=== PATIENT | female | born 1985 | race Caucasian/White ===

== ENCOUNTER 2017-12-24 13:15 | Emergency (ER) | payer SELFPAY ==
[2017-12-24 13:16] VITALS: BP 115/53; PULSE 101; RESP 16; TEMP 37; O2SAT 99; BMI 21.0
[2017-12-24 14:29] LABS: Mucous, Urine 0 SEEN /hpf (<or=2+); Red Blood Cells-Urine 0 SEEN /hpf (0-5); White Blood Cells 0 SEEN /hpf (0-5)
[2017-12-24 14:33] LABS: Color, Urine Yellow (Yellow); Glucose, Dipstick Normal (Normal); Ketone-Dipstick Negative (Negative); Leukocyte Esterase-Dipstick Negative /ul (Negative); Nitrite-Dipstick Negative (Negative); Occult Blood-Urine Negative /ul (Negative); Protein-Dipstick Negative (Negative); Specific Gravity, Urine 1.015 (1.002-1.030); Urine Bilirubin Dipstick Negative (Negative); Urine Clarity Sl. Cloudy (Clear); Urine Urobilinogen Normal (Normal)
[2017-12-24 14:35] LABS: Absolute Neutrophil Count 7.6 X10^3/uL (2.0-7.7); Basophil# 0.02 X10^3/uL; Basophil% 0.2 % (0-1); Eosinophil# 0.07 X10^3/uL; Eosinophils% 0.7 % (0-5); Hematocrit 31.9 % (37-47); Hemoglobin 10.5 g/dl (12.0-15.0); Lymphocyte % 15.6 % (19-41); Mean Corp Hgb Conc 32.9 g/gl (32-36); Mean Corpuscular Hgb 28.6 pg (27.0-32.0); Mean Corpuscular Volume 86.9 fL (81-99); Mean Platelet Vol. 10.1 fl (6.2-12.0); Monocyte# 0.43 X10^3/uL; Monocyte% 4.5 % (0-10); Neutrophil # 7.58 X10^3/uL (2.7-7.7); Neutrophil % 78.9 % (47-70); Platelet Count 217 K/mm3 (150-450); RBC Distribution Width CV 13.2 % (11.6-14.6); RBC Distribution Width SD 40.6 fl (35.1-43.9); Red Blood Count 3.67 M/mm3 (4.2-5.4); White Blood Count 9.6 K/mm3 (4.4-11.0)
[2017-12-24 14:36] LABS: POSITIVE COUNT NO; POSITIVE DIFFERENTIAL NO; POSITIVE MORPHOLOGY NO
[2017-12-24 14:39] LABS: Bacteria 1+ /hpf (None Seen); Squamous Epithelial Cells - UA 0-5 SEEN /hpf (5-10)
[2017-12-24 15:04] LABS: hCG Titer Quant., Serum 16919 mIU/mL (<9 non-preg)
--- NOTE | 2017-12-24 15:14 | US_ITS ---
STUDY: SECOND AND THIRD TRIMESTER OBSTETRICAL ULTRASOUND - LIMITED REASON FOR EXAM: Female, 32 years old. Left pelvic pain. Beta hCG of 16,919. LMP: July 2017. PRIOR ULTRASOUND: None. TECHNIQUE: Transabdominal ultrasound evaluation was performed. FINDINGS: There is a single intrauterine fetus. The fetus is in a cephalic presentation. There is demonstrated cardiac activity with a heart rate of 163 bpm. There is a normal amniotic fluid volume. The placenta is left lateral in location and is not low lying. There are Grade 1 placental changes. The cervix measures 3.81 cm cm in length. BIOMETRY: BPD: 4.62 cm: 20 weeks, 0 days HC: 16.65 cm: 19 weeks, 3 days AC: 14.12 cm: 19 weeks, 4 days FL: 3.12 cm: 19 weeks, 5 days age by current US: 19 weeks, 5 days. CRIS by current US: May 15, 2018. Estimated weight: 300 grams, +/- 44 grams. US/OB Limited With Biometrics IMPRESSION: 1. Live single intrauterine at 19 weeks, 5 days. CRIS is May 15, 2018. 2. EFW of 300 g. 3. Adequate amniotic fluid. 4. Left lateral grade 1 placenta. 5. Vertex presentation. Electronically Signed: Shay Mayer DO at 16:19 EDT Tel [phone], Service support ,
--- NOTE | 2017-12-24 15:58 | ED.DCSUM_ITS ---
- ER Visit Summary Date of Service: 12/24/17 Chief Complaint: [Abdominal pain] History of Present Illness: The patient is a 32 F [presents the emergency department complaint of abdominal pain ?3 days. Patient describes the pain is left lower quadrant/pelvis. Patient states that she took home test a couple weeks ago and it was positive. She denies any vaginal bleeding. Patient has history of prior tubal and is concerned. Patient denies any significant urinary symptoms other than some mild frequency. Patient has had some mild nausea. Patient has had some mild discomfort in her back.] Physical Examination: [HEENT-PERRLA, EOMI. Cranial nerves II through XII grossly intact. TMs clear. Mucous membranes moist. No adenopathy. Cardiovascular-regular rate and rhythm without murmur or ectopy Lungs-clear to auscultation, chest wall stable without crepitus or subcu emphysema Abdomen-normoactive bowel sounds, soft. Patient does have some tenderness over left lower quadrant down into the pelvis. No masses palpated. There is no rebound, rigidity, or perineal signs. Extremities-intact ?4, normal range of motion, normal pulses, atraumatic] Test Results: [CBC with differential was normal. Urinalysis was normal. Quant was 16,919. Pelvic ultrasound ordered and pending] Emergency Department Course and Treatment: [Care of patient turned over to evening physician awaiting ultrasound results] Treatment Plan: [Pending ultrasound results] Disposition: [Pending ultrasound results] Impression: [Abdominal/pelvic pain] This note was generated with [employer] dictation software. It may contain incorrect words, spelling, and punctuation that were not noted in review of the chart prior to signing ED Disposition - Plan for ED Patient: Chief Complaint: Abd Pain Referrals: Jes Wood MD [Primary Care Provider] -
[2017-12-24 16:28] VITALS: RESP 18
--- NOTE | 2017-12-24 17:06 | ED.DEP ---
ED Disposition - Plan for ED Patient: Chief Complaint: Abd Pain Instructions: Care for a Healthy Baby Referrals: Jes Wood MD [Primary Care Provider] - Kamini Burkett MD [STAFF PHYSICIAN] -
[2017-12-24 17:11] VITALS: BP 104/60; PULSE 88; RESP 18; O2SAT 100
== END 2017-12-24 17:12 | disposition home or self-care (01) ==
PROVIDERS: Emergency Medicine; Emergency Provider Emergency Medicine; Family Provider Family Medicine; PCP Family Medicine
DX: O26.892 Other specified pregnancy related conditions, second trimester (principal); R10.2 Pelvic and perineal pain; Z3A.19 19 weeks gestation of pregnancy
CPT/HCPCS: 76816; 81001; 84702; 85025; 86900; 99283; A4216

== ENCOUNTER 2018-05-08 11:35 | Inpatient (IN) | payer MEDICAID, SELFPAY ==
[2018-05-08 11:47] VITALS: BMI 25.4
[2018-05-08] MEDS: Lactated Ringers 1,000 ML 50 ML IV (12:00)
--- NOTE | 2018-05-08 12:07 | PCM.HP.OB ---
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 Patient reports initiation of strong contractions today that quickly became regular and more painful. On admission patient was found to be 6cm with BBOW by nursing staff - SROM for clear fluid on exam @ 1140am. Patient denies vaginal bleeding or decreased movement. Patient care initiated at 21 weeks x 8 visits. 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 Maternal titers have remained low during and have not increased. Allergies Penicillins Allergy (Verified 12/24/17 13:19) Rash Home Medications: Home Medications Multivitamin [Multiple Vitamins] 1 each PO DAILY 08/11/16 Smoking Status: Former smoker Alcohol: None Number of Fetus(es): 1 Heart Tracing: Baseline 145, moderate variability, + accels, no decels noted TOCO Analysis: Ctx q 2-3 minutes, palpate moderate to strong History Past Pregnancies: Past Pregnancies Delivery Date Name GA/Weeks Outcome Route Weight Gender Labor Length Anesthesia Delivery Location Provider FOB 11/2006 [facility] 38 Live 7#6oz M Epidural 12/2016 40+2 Live 8#4oz F Epidural 08/2014 Ectopic Labs: AB+, Abs Screen - + anti-c and anti-cW (titers stable at 4 and 2 respectively), Urine Tox Negative, Urine Culture Negative, GC Neg, CT Positive --> ANGY is Neg , HIV Neg, HepBsAg Neg, Rubella Immune, RPR Neg, 1 hour GCT = 103, Hgb = 10.4 --> 9.2, GBS neg Expected Delivery Method: Spontaneous Vaginal Describe any other labor & delivery plans:: Desires epidural Number of Visits: 8 Review of Systems Constitutional: Denies: Chills, Fever Eyes: Denies: Vision Change HEENT: Denies: Head Aches Cardiovascular: Denies: Edema Gastrointestinal: Reports: Abdominal Pain - Reports ctx q 2-3 minutes Genitourinary: Denies: Dysuria, Frequency, Urgency Gynecological: Reports: Vaginal discharge Psychiatric: Denies: Anxiety, Depression, Homicidal Ideations, Suicidal Ideations Hematologic/ Lymphatic: Reports: Anemia Physical Exam Vitals: See nursing assessment for vitals - patient afebrile and normotensive General: Alert, Oriented x3, No apparent distress HEENT: Atraumatic, Normocephalic. Negative for: Thyromegaly, Lymphadenopathy Cardiovascular: Regular rate, Regular Rhythm Lungs: Normal air movement Abdomen: Soft, Non Tender, Non-Distended, Gravid Neurological: Deep Tendon Reflexes 2+/4 and Symmetrical, Neuro grossly intact FULL STACK SOFTWARE DEVELOPER: Normal external genitalia. 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 1) Admit patient, Dr. Kwadwo CHO OB back-up aware of admission 2) T+C for 2 units PRBCs based on patient's hx of maternal anti-c and anti-cW antibodies 3) Expectant management at this time - epidural requested if time allows 4) Anticipate Juanis ARTHUR
[2018-05-08 12:23] LABS: Hemoglobin 10.7 g/dl (12.0-15.0); Mean Corp Hgb Conc 32.4 g/gl (32-36); Mean Corpuscular Hgb 28.8 pg (27.0-32.0); Mean Corpuscular Volume 88.9 fL (81-99); Mean Platelet Vol. 9.3 fl (6.2-12.0); Platelet Count 178 K/mm3 (150-450); RBC Distribution Width CV 15.4 % (11.6-14.6); RBC Distribution Width SD 49.4 fl (35.1-43.9); Red Blood Count 3.71 M/mm3 (4.2-5.4); White Blood Count 11.8 K/mm3 (4.4-11.0)
[2018-05-08 12:24] LABS: Scan Indicated on CBC? Y/N NO
[2018-05-08] MEDS: Oxytocin 30 units/NS 500 ml 30 UNITS/500 ML IV.SOLN 334 UNITS IV (13:26)
--- NOTE | 2018-05-08 13:49 | PCM.OB.VAG ---
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 Qualifiers: Fetus number: single or unspecified fetus Qualified Code(s): O36.1930 - Maternal care for other isoimmunization, third trimester, not applicable or unspecified Vaginal Delivery Maternal Presentation: Active Labor Amniotic Membrane Rupture Type: Spontaneous Rupture of Membrane time: 11:40am Amniotic Fluid Description: Clear Final CRIS: 05/15/18 Gestational age: 39 Weeks and 0 Days Date of Procedure: 05/08/18 Pre-Operative Diagnosis: Active Labor @ 39 weeks Post-Operative Diagnosis: of viable girl baby Surgery/ Procedure Performed: Spontaneous Vaginal Delivery Type of Anesthesia: None Description of Procedure: Patient progressed quickly to 9cm, unable to receive epidural as labor progressed so fast. Patient soon started to feel increased pelvic and rectal pressure and was found to be 9.5/100/0 with retractable cervical lip during contractions. Patient pushed well with encouragement and delivered viable girl baby over intact perineum at 1321. Infant head delivered OA, restituted to CAROL and then LOT. Shoulders delivered without difficulty followed by body. had spontaneous cry and respirations, was dried and stimulated and was placed on maternal chest for [id number]. Infant mouth and nose bulb suctioned. Apgars 8 and 9. Umbilical cord clamped and cut once it stopped pulsing by patient's sister. Placenta then delivered spontaneously via Unger mechanism intact with 3VC. Of note, placenta was a bilobed placenta with velamentous cord insertion. FF, midline to massage and 3FB below umbilicus. IV pitocin infused per protocol for active management of the 3rd stage. Upon inspection of vaginal vault, no lacerations noted. No repair needed. Vaginal sweep negative. Sponge count correct. Patient electing to feed baby formula, skin-to skin contact continued at this time. Patient desires PPTL for contraception. Juanis Lalo LINE UP MACHINE OPERATOR-CNM Presentation: Vertex, CAROL Placental Delivery Description: Spontaneous Placenta Disposition: [facility] Cord Vessel Description: 3 Vessels Cord Entanglement: None Estimated Blood Loss: 150 A gender: Female (1 minute): 8 (5 minute): 9 Episiotomy Description: None Laceration: None Medications given after delivery: IV Pitocin Complications: None
[2018-05-08] MEDS: Oxytocin 30 units/NS 500 ml 30 UNITS/500 ML IV.SOLN 167 UNITS IV (13:56)
--- NOTE | 2018-05-08 13:56 | OP.PCM_ITS ---
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 Qualifiers: Fetus number: single or unspecified fetus Qualified Code(s): O36.1930 - Maternal care for other isoimmunization, third trimester, not applicable or unspecified Vaginal Delivery Maternal Presentation: Active Labor Amniotic Membrane Rupture Type: Spontaneous Rupture of Membrane time: 11:40am Amniotic Fluid Description: Clear Final CRIS: 05/15/18 Gestational age: 39 Weeks and 0 Days Date of Procedure: 05/08/18 Pre-Operative Diagnosis: Active Labor @ 39 weeks Post-Operative Diagnosis: of viable girl baby Surgery/ Procedure Performed: Spontaneous Vaginal Delivery Type of Anesthesia: None Description of Procedure: Patient progressed quickly to 9cm, unable to receive epidural as labor progressed so fast. Patient soon started to feel increased pelvic and rectal pressure and was found to be 9.5/100/0 with retractable cervical lip during contractions. Patient pushed well with encouragement and delivered viable girl baby over intact perineum at 1321. Infant head delivered OA, restituted to CAROL and then LOT. Shoulders delivered without difficulty followed by body. had spontaneous cry and respirations, was dried and stimulated and was placed on maternal chest for [id number]. Infant mouth and nose bulb suctioned. Apgars 8 and 9. Umbilical cord clamped and cut once it stopped pulsing by patient's sister. Placenta then delivered spontaneously via Unger mechanism intact with 3VC. Of note, placenta was a bilobed placenta with velamentous cord insertion. FF, midline to massage and 3FB below umbilicus. IV pitocin infused per protocol for active management of the 3rd stage. Upon inspection of vaginal vault, no lacerations noted. No repair needed. Vaginal sweep negative. Sponge count correct. Patient electing to feed baby formula, skin-to skin contact continued at this time. Patient desires PPTL for contraception. Juanis Lalo BEATER HEAD-CNM Presentation: Vertex, CAROL Placental Delivery Description: Spontaneous Placenta Disposition: [facility] Cord Vessel Description: 3 Vessels Cord Entanglement: None Estimated Blood Loss: 150 A gender: Female (1 minute): 8 (5 minute): 9 Episiotomy Description: None Laceration: None Medications given after delivery: IV Pitocin Complications: None
--- NOTE | 2018-05-08 14:00 | DCINST_ITS ---
Discharge Diet: No Restrictions Discharge Activity: Return to Normal Activity, May not drive while taking narcotic pain medications., May Shower May resume sexual activity in: 4-6 weeks Additional Activity Instructions:: Nothing in the vagina for 4-6 weeks. You may return to work/school in 6 weeks. Call your doctor if your incision/area has: Continuous Slow Oozing, Sudden Increased Bleeding, Increased Pain/ Swelling, Increased Redness, Foul Smelling Discharge Call your doctor if you observe: Fever of 101 or Higher, Inability to urinate, Inability to have a bowel movement, Using more than one pad per hour Additional Instructions: If you experience any of the following, contact your healthcare provider. * Bleeding that soaks a pad every hour for 2 hours * Fever 100.4 or higher * Unrelieved incision or abdominal pain * Swelling, redness, discharge or bleeding from your incision or episiotomy site * Your incision begins to separate * Problems urinating (including inability to urinate or burning while urinating). * Visual changes * Severe headache * Flu-like symptoms * Pain or redness in one of both of your breasts * Pain, warmth, tenderness or swelling in your legs, especially the calf area * Frequent nausea and vomiting * Symptoms of depression or anxiety If you experience any of the following, call 911 or go to the nearest Emergency Room. * Chest pain * Problems breathing * Seizure activity * Partial or complete paralysis of a body part, slurred speech, weakness or drooping of the face, or a sudden inability to walk or hold your balance Allergies/Adverse Reactions: Allergies Penicillins Allergy (Verified 12/24/17 13:19) Rash Medications to take at Discharge Multivitamin [Multiple Vitamins] 1 each PO DAILY 08/11/16 Ibuprofen [Motrin] 600 mg PO Q6H PRN PRN tablet 05/08/18 Senna/Docusate Sodium [Senokot-S] 1 - 2 tablet PO DAILY PRN PRN tablet 05/08/18 Please Follow Up With: Juanis May CNM When: Call to make an appointment with your provider in 2 weeks and 6 weeks. [facility] will contact your regarding scheduling PPTL surgery Primary Care Physician: Jes Wood MD [Primary Care Provider] - Test Results: Test results from this visit will be discussed in further detail at your follow- up appointment, if applicable.
[2018-05-08] MEDS: Ibuprofen 600 MG Tablet PO ×2 (14:55→23:02)
--- NOTE | 2018-05-08 16:28 | NURSING ---
Report given to Amie Hernández RN. She will assume care of patient at this time.
[2018-05-08 20:10] VITALS: BP 116/62; PULSE 80; RESP 18; TEMP 36.7; O2SAT 98
[2018-05-08 23:03] VITALS: BP 125/65; PULSE 81; RESP 18; TEMP 36.9
[2018-05-09 04:05] VITALS: BP 112/66; PULSE 70; RESP 18; TEMP 36.3
[2018-05-09 06:37] LABS: Hematocrit 32.8 % (37-47); Hemoglobin 10.4 g/dl (12.0-15.0); Mean Corp Hgb Conc 31.7 g/gl (32-36); Mean Corpuscular Hgb 28.4 pg (27.0-32.0); Mean Corpuscular Volume 89.6 fL (81-99); Mean Platelet Vol. 9.7 fl (6.2-12.0); Platelet Count 153 K/mm3 (150-450); RBC Distribution Width CV 15.5 % (11.6-14.6); RBC Distribution Width SD 49.6 fl (35.1-43.9); Red Blood Count 3.66 M/mm3 (4.2-5.4); White Blood Count 8.4 K/mm3 (4.4-11.0)
[2018-05-09] MEDS: Ibuprofen 600 MG Tablet PO ×3 (06:37→20:37)
[2018-05-09 06:38] LABS: Scan Indicated on CBC? Y/N NO
[2018-05-09 08:00] VITALS: BP 108/60; PULSE 70; RESP 14; TEMP 36.3; O2SAT 98
--- NOTE | 2018-05-09 08:25 | PCM.PN.OB ---
Subjective: Patient feels well - Physical Exam General: Alert, Oriented x3 Abdomen: Soft, Non Tender, Non-Distended - ff mid & below umb Extremities: No Calf Tenderness Vital Signs Temp Pulse Resp BP Pulse Ox 97.3 F L 70 18 112/66 98 05/09/18 04:05 05/09/18 04:05 05/09/18 04:05 05/09/18 04:05 05/08/18 20:10 Oxygen Delivery Method Room Air Weight: 153 lb Body Mass Index (BMI) 25.4 Intake and Output for Last 24 Hours 05/07/18 05/08/18 05/09/18 23:59 23:59 23:59 Intake Total 454 / 454 Output Total 200 / 200 Balance 254 / 254 Laboratory Tests Past 24 Hrs 05/08/18 05/08/18 05/08/18 11:45 11:45 11:45 WBC 11.8 H RBC 3.71 L Hgb 10.7 L Hct 33.0 L MCV 88.9 MCH 28.8 MCHC 32.4 RDW 15.4 H RDW Differential 49.4 H Plt Count 178 MPV 9.3 Blood Type Not Reportable AB POSITIVE Antibody Screen POSITIVE H Antibody Identification ANTI-LITTLE c Crossmatch 05/08/18 05/09/18 12:10 06:27 WBC 8.4 RBC 3.66 L Hgb 10.4 L Hct 32.8 L MCV 89.6 MCH 28.4 MCHC 31.7 L RDW 15.5 H RDW Differential 49.6 H Plt Count 153 MPV 9.7 Blood Type Antibody Screen Antibody Identification Crossmatch See Detail Medical Necessity - Tobacco Use Smoking Status: Former smoker Assessment/Plan All Active Problems (Last Updated 05/08/18 @ 13:58 by Juanis May CNM) History of drug use (Acute) Tobacco use complicating (Acute) Rubella non-immune status, antepartum (Acute) Supervision of high-risk (Acute) PPD#1 Routine care Possible d/c home later today per patient request
[2018-05-09 12:10] VITALS: BP 113/40; PULSE 72; RESP 20; TEMP 36.6; O2SAT 99
[2018-05-09] MEDS: Senna/Docusate Sodium 1 Tablet PO (12:34)
[2018-05-09 18:10] VITALS: BP 104/60; PULSE 73; RESP 14; TEMP 36.4; O2SAT 99
[2018-05-09 20:00] VITALS: BP 128/50; PULSE 64; RESP 16; TEMP 36.4; O2SAT 99
[2018-05-10 02:05] VITALS: BP 98/62; PULSE 62; RESP 16; TEMP 36.2; O2SAT 100
--- NOTE | 2018-05-10 07:54 | PCM.PN.OB ---
Subjective: Patient sitting up in bed, baby at bedside underneath bili lights. Patient denies any issues at this time, reports desire to be discharged today. Denies issues with ambulation or urination. Denies PAYNE, scotoma or dizziness. Objective: Nipples without cracks or blisters, no erythema noted Abdomen NT x 4 quadrants, FF midline 4FB below umbilicus +2/4 reflexes in LE, no edema scant rubra lochia - Physical Exam General: Alert, Oriented x3, Cooperative HEENT: Atraumatic, Normocephalic Neck: Supple Lungs: Normal air movement Cardiovascular: Regular rate, Regular Rhythm Abdomen: Soft, Non Tender Extremities: No edema, Capillary Refill Less than 3 Seconds Skin: No rashes, No breakdown Musculoskeletal: No Tenderness to Palpation of Joints or Extremities Neurological: Cranial nerves II-XII grossly intact Psych/Mental Status: Normal Affect, Appropriate Vital Signs Temp Pulse Resp BP Pulse Ox 97.1 F L 62 16 98/62 100 05/10/18 02:05 05/10/18 02:05 05/10/18 02:05 05/10/18 02:05 05/10/18 02:05 Oxygen Delivery Method Room Air Weight: 153 lb Body Mass Index (BMI) 25.4 Intake and Output for Last 24 Hours 05/08/18 05/09/18 05/10/18 23:59 23:59 23:59 Intake Total 454 / 454 Output Total 200 / 200 Balance 254 / 254 Medical Necessity - Tobacco Use Smoking Status: Former smoker Assessment/Plan All Active Problems (Last Updated 05/08/18 @ 13:58 by Juanis May CNM) History of drug use (Acute) Tobacco use complicating (Acute) Rubella non-immune status, antepartum (Acute) Supervision of high-risk (Acute) A: 33 y/o now, s/p , PPD #2, Normal P: 1) Discharge to home pending discharge 2) RTC at 2 weeks and 6 week PP to [facility] Juanis May APRN-SARI
[2018-05-10 08:26] VITALS: BP 135/75; PULSE 79; RESP 16; TEMP 36.1; O2SAT 98
[2018-05-10] MEDS: Ibuprofen 600 MG Tablet PO (09:23)
[2018-05-10 13:35] VITALS: BP 100/52; PULSE 62; RESP 16; TEMP 36.3; O2SAT 100
--- NOTE | 2018-05-15 14:46 | NURSING ---
05/15/18 Follow up phone call, Mom doing well and baby too. Milk is in. Discharge went well, baby had to stay a couple days longer due to bilirubin etc. but doing well now. No complaints but states that all went well for her stay. Dafne RN IBCLC
--- OUTSIDE RECORDS SUMMARY | 2018-06-24 15:16 | XMS RPT_ITS ---
:1985 Author Organization OHIP Care Team Providers Name Role Phone EMILY MONTERO Attending Unavailable JANETT, JUANIS (CNM) Referring Unavailable JANETT, JUANIS (CNM) Attending Unavailable MORENO, LAYTON (CNM) Attending Unavailable MORENO, LAYTON (CNM) Referring Unavailable JANETT, JUANIS (CNM) Referring Unavailable JANETT, JUANIS (CNM) Referring Unavailable MIREYA MCNAMARA Attending Unavailable MORENO, LAYTON (CNM) Referring Unavailable MORENO, LAYTON (CNM) Attending Unavailable MORENO, LAYTON (CNM) Referring Unavailable MORENO, LAYTON (CNM) Referring Unavailable MORENO, LAYTON (CNM) Referring Unavailable JANETT, JUANIS (CNM) Attending Unavailable MORENO, LAYTON (CNM) Referring Unavailable MASCI, KAT A Referring Unavailable MASCI, KAT A Referring Unavailable JANETT, JUANIS (CNM) Attending Unavailable NEHEMIAS, KAT A Referring Unavailable SUPRIYA FOURNIER Referring Unavailable MASCI, KAT A Referring Unavailable JANETT, JUANIS (CNM) Attending Unavailable YURIY MARINELLI (PAPER COLORER) Attending Unavailable YURIY MARINELLI (PAPER COLORER) Referring Unavailable Supriya Fournier Admitting Unavailable Supriya Fournier Attending Unavailable Supriya Fournier Referring Unavailable Jes Wood Primary Care Unavailable Jes Wood Primary Care Unavailable Sabrina Best Attending Unavailable PROBLEMS PROBLEMS DATE TYPE CONDITION / CODE ATTENDING STATUS SOURCE 03/21/2018 Active Other iron RUTYURIY HENAO Active [facility] deficiency anemias (PAPER COLORER) [place] / D50.8(ICD-10) Repository 03/21/2018 Active Intestinal RUTTI, YURIY Active [facility] malabsorption, (PAPER COLORER) [place] unspecified / Repository K90.9(ICD-10) 05/30/2018 Active Periapical abscess RUTTIYURIY Active [facility] without sinus / (PAPER COLORER) [place] K04.7(ICD-10) Repository 05/30/2018 Active Localized swelling, RUTTI, YURIY Active [facility] mass and lump, head (PAPER COLORER) [place] / R22.0(ICD-10) Repository 05/02/2018 Active Unknown / JUANIS ROWLAND [facility] UNK(Unknown) (CN) [place] Repository 04/02/2018 Active Supervision of [facility] other high risk [place] pregnancies, third Repository trimester / O09.893(ICD-10) 03/04/2018 Active 29 weeks gestation [facility] of / [place] Z3A.29(ICD-10) Repository 03/04/2018 Active Other specified [facility] abnormal [place] immunological Repository findings in serum / R76.8(ICD-10) 02/18/2018 Active Maternal care for [facility] other [place] isoimmunization, Repository second trimester, not applicable or unspecified / O36.1920(ICD-10) 02/05/2018 Active Encounter for [facility] supervision of [place] other normal Repository , second trimester / Z34.82(ICD-10) 02/05/2018 Active 25 weeks gestation [facility] of / [place] Z3A.25(ICD-10) Repository PROCEDURES PROCEDURES No Procedure Records FoundRESULTS RESULTS CBC AND DIFFERENTIAL Collected: 05/30/2018 Status: F Source: [place] 3:47 PM [facility] REPOSITORY TYPE CODE TESTS RESULT OUT OF REFERENCE UNITS RANGE LAB WBC 3.70-11.00 k/uL WBC 6.96 LAB RBC 3.90-5.20 m/uL RBC 4.88 LAB HGB 11.5-15.5 g/dL Hemoglobin 13.7 LAB HCT 36.0-46.0 % Hematocrit 44.6 LAB MCV 80.0-100.0 fL MCV 91.4 LAB MCH 26.0-34.0 pG MCH 28.1 LAB MCHC 30.5-36.0 g/dL MCHC 30.7 LAB RDWCV 11.5-15.0 % RDW-CV 13.7 LAB PLTCT 150-400 k/uL Platelet Count 243 LAB MPV 9.0-12.7 fL MPV 10.3 LAB ANEUT % Neut% 61.3 LAB AANEUT 1.45-7.50 k/uL Abs Neut 4.25 LAB ALYMP % Lymph% 31.0 LAB AALYMP 1.00-4.00 k/uL Abs Lymph 2.16 LAB AMONO % Stearns% 5.5 LAB AAMONO <0.87 k/uL Abs Stearns 0.38 LAB AEOS % Eosin% 1.6 LAB AAEOS <0.46 k/uL Abs Eosin 0.11 LAB ABASO % Baso% 0.6 LAB AABASO <0.11 k/uL Abs Baso 0.04 LAB AUNRBC 0 /100 WBC NRBCs High 0.1 LAB ABNRBC <0.01 k/uL Absolute High nRBC 0.01 LAB DTYP DTYPE Auto Diff Performed By: #### CBCDIF #### [facility] [address] [place], [place] [address] CNOV Observed: 05/30/2018 Status: COMPLETED Source: [place] 3:20 PM [facility] REPOSITORY Office Visit (FAMPWS) MITCHELL LACEY ([id number]) 1985 F Date Time Provider Department 05/30/18 3:20 PM YURIY MARINELLI ([facility]) FAMPWS During your visit today, we recorded the following information about you: Pulse Respiration Blood pressure Weight 94/minute 16/minute 116/70 61.7 kg Yuriy Marinelli APRN.PAPER COLORER 05/30/2018 4:59 PM Signed 05/30/2018 Patient presents with: Edema: face left side SUBJECTIVE: This is a 33 year old that is here today for left sided face swelling that she noticed yesterday when she woke up. Denies injury, using new products, ever experiencing this before. She denies tooth pain, but admits that she has not seen a dentist in quite a while, there is pain if she lays on that side. She denies fever or chills. She is fatigued and getting headaches daily. She is 3 weeks and also has 18 month old twins, but she states that she is sleeping and eating and drinking normally. She is worried about anemia because she had it in requiring IV infusions. Mom is with her today and would like a referral to hematology due to complications with anemia and other issues during with antibodies that affected the baby. She denies any concerns for bruising or bleeding. PAST MEDICAL HISTORY Diagnosis Date - Anemia - Chlamydia - Dysthymic disorder Depression (non-psychotic) - fracture 11 years old left wrist and arm, playground accident - Ruptured ectopic ALLERGIES Penicillins MEDICATIONS Current Outpatient Prescriptions: MULTIVITAMIN ORAL Take by mouth. Clskseaa-Mt-Wud-Fe-FA ( VITAMIN) tab Take 1 tablet by mouth. No current facility-administered medications for this visit. Medications and allergies reviewed by this provider. SOCIAL HISTORY Social History Marital status: Single Spouse name: Years of education: 12 Number of children: 2 Occupational History Occupation Employer Comment waiter/waitress informal [employer] Social History Main Topics Smoking status: Former Smoker Packs/day: 0.00 Years: 10.00 Types: Cigarettes Quit date: 12/24/2017 Smokeless tobacco: Never Used Alcohol use: No Drug use: No Sexual activity: Yes Partners with: Male control/protection: Pill REVIEW OF SYSTEMS see HPI OBJECTIVE: BP 116/70 Pulse 94 Resp 16 Wt 61.7 kg (136 lb) SpO2 99% ? No BMI 22.29 kg/m? . Vital signs reviewed by this provider. PHYSICAL EXAMINATION: General appearance: Well appearing, alert, in no acute distress, well-hydrated, well nourished. Skin: Skin color, texture, turgor normal, no suspicious rashes or lesions Head: facial swelling to the left cheek, no facial tenderness, some tenderness to the neck on the left Eyes: Anicteric sclera. Pupils are equally round and reactive to light. Ears: External ears normal, canals clear, TMs normal Oropharynx: Lips, mucosa, and tongue normal, oropharynx normal and Positive findings: gingival hypertrophy, dental caries Neck: Supple, no adenopathy Lungs: lungs clear to auscultation. No wheezing, rhonchi, rales Heart: RRR without murmur, gallop, or rubs. No ectopy Extremities: No deformities, edema, skin discoloration, clubbing or cyanosis. Good capillary refill. , Pulses: 2+ ASSESSMENT/PLAN: 1. Iron deficiency anemia secondary to inadequate dietary iron intake - ICD9: 280.1, ICD10: D50.8 (primary diagnosis) - CONSULT TO HEMATOLOGY - CBC + DIFF 2. 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 Dental infection - ICD9: 522.4, ICD10: K04.7 - stressed need for dental visit - CLINDAMYCIN HCL 300 MG CAPSULE 4. Swelling of left side of face - ICD9: 784.2, ICD10: R22.0 - see above - if worsening or having any trouble with vision, breathing, or swallowing needs to be seen in ER - CLINDAMYCIN HCL 300 MG CAPSULE Yuriy Marinelli APRN.PAPER COLORER Referring Provider: SELF [200] Allergies As of Date: 05/30/2018 Noted Allergy Reaction PENICILLINS 02/06/2014 16 - Unknown Comments: Pt believes she gets hives and a bad reaction Date Reviewed: 05/30/2018 Reviewed by: Tg Fox) ANNA Parker - Fully Assessed Reason for Visit: Edema [39] Cmt: face left side Primary Visit Diagnosis:Iron deficiency anemia secondary to inadequate dietary iron intake [D50.8] Other Visit Diagnoses:Iron malabsorption [K90.9] Dental infection [K04.7] Swelling of left side of face [R22.0] Order(s):CONSULT TO HEMATOLOGY [9014] Order #: [id number]: 1 CBC + DIFF [SQCBCDIF] Order #: [id number] FUTURE clindamycin (CLEOCIN) 300 mg capsuleTake 1 capsule by mouth four times daily for 7 days.Disp: 28 capsuleRfl: 0 Prescriptions as of 05/30/2018 Sig: CLINDAMYCIN HCL 300 MG CAPSULE Take 1 capsule by mouth four * MULTIVITAMIN ORAL Take by mouth. VITAMIN,CALCIUM,MINE* Take 1 tablet by mouth. Problem List As Of Date 05/30/2018 Noted Resolved Supervision of normal first [Z34.00] INVALID FOR*05/03/2016 Custody issue [Z65.3] INVALID FOR*04/01/2018 More... History of depression [Z86.59] INVALID FOR* More... Stopped smoking [Z87.891] INVALID FOR*01/07/2018 More... Family history of sickle cell anemia [Z83.2] INVALID FOR* More... Patient requested diagnostic testing [Z01.89] INVALID FOR* More... Chlamydial infection [A74.9] INVALID FOR*01/07/2018 More... Trichomonas infection [A59.9] INVALID FOR*01/07/2018 More... Abnormal glucose complicating [O99.81*INVALID FOR*01/07/2018 More... Anemia complicating , second trimester*INVALID FOR* More... Short interval between pregnancies affecting pr*INVALID FOR* More... Late care affecting [O09.30] INVALID FOR* More... Prior labor, antepartum [O09.219] INVALID FOR* More... Quit smoking [Z87.891] INVALID FOR* More... Family history of congenital heart defect [Z82.*INVALID FOR* More... Marginal insertion of umbilical cord affecting *INVALID FOR* More... Maternal atypical antibody affecting *INVALID FOR* More... Abnormal antibody titer [R76.8] INVALID FOR*03/04/2018 Iron deficiency anemia secondary to inadequate *INVALID FOR* More... Iron malabsorption [K90.9] INVALID FOR* Prescriptions ordered this encounter Disp Refills Start End CLINDAMYCIN HCL 300 MG CAPSULE 28 c* 0 05/30/2018 06/06/2018 Route: ORAL Sig: Take 1 capsule by mouth four times daily for 7 days. Disposition: Return for would like to establish with Dr. Bravo. Follow-up and Disposition History Recorded Encounter Status:Closed by YURIY MARINELLI on 05/30/18 PROGRESS Observed: 05/30/2018 Status: COMPLETED Source: [place] 3:10 PM [facility] REPOSITORY HNO ID: [id number] Author: Yuriy Marinelli Service: (none) Author Type: Nurse Practitioner Type: Progress Notes Filed: 05/30/2018 4:59 PM Note Text: 05/30/2018 Patient presents with: Edema: face left side SUBJECTIVE: This is a 33 year old that is here today for left sided face swelling that she noticed yesterday when she woke up. Denies injury, using new products, ever experiencing this before. She denies tooth pain, but admits that she has not seen a dentist in quite a while, there is pain if she lays on that side. She denies fever or chills. She is fatigued and getting headaches daily. She is 3 weeks and also has 18 month old twins, but she states that she is sleeping and eating and drinking normally. She is worried about anemia because she had it in requiring IV infusions. Mom is with her today and would like a referral to hematology due to complications with anemia and other issues during with antibodies that affected the baby. She denies any concerns for bruising or bleeding. PAST MEDICAL HISTORY Diagnosis Date - Anemia - Chlamydia - Dysthymic disorder Depression (non-psychotic) - fracture 11 years old left wrist and arm, playground accident - Ruptured ectopic ALLERGIES Penicillins MEDICATIONS Current Outpatient Prescriptions: MULTIVITAMIN ORAL Take by mouth. Hmobftpb-Vs-Buc-Fe-FA ( VITAMIN) tab Take 1 tablet by mouth. No current facility-administered medications for this visit. Medications and allergies reviewed by this provider. SOCIAL HISTORY Social History Marital status: Single Spouse name: Years of education: 12 Number of children: 2 Occupational History Occupation Employer Comment waiter/waitress informal [employer] Social History Main Topics Smoking status: Former Smoker Packs/day: 0.00 Years: 10.00 Types: Cigarettes Quit date: 12/24/2017 Smokeless tobacco: Never Used Alcohol use: No Drug use: No Sexual activity: Yes Partners with: Male control/protection: Pill REVIEW OF SYSTEMS see HPI OBJECTIVE: BP 116/70 Pulse 94 Resp 16 Wt 61.7 kg (136 lb) SpO2 99% ? No BMI 22.29 kg/m? . Vital signs reviewed by this provider. PHYSICAL EXAMINATION: General appearance: Well appearing, alert, in no acute distress, well-hydrated, well nourished. Skin: Skin color, texture, turgor normal, no suspicious rashes or lesions Head: facial swelling to the left cheek, no facial tenderness, some tenderness to the neck on the left Eyes: Anicteric sclera. Pupils are equally round and reactive to light. Ears: External ears normal, canals clear, TMs normal Oropharynx: Lips, mucosa, and tongue normal, oropharynx normal and Positive findings: gingival hypertrophy, dental caries Neck: Supple, no adenopathy Lungs: lungs clear to auscultation. No wheezing, rhonchi, rales Heart: RRR without murmur, gallop, or rubs. No ectopy Extremities: No deformities, edema, skin discoloration, clubbing or cyanosis. Good capillary refill. , Pulses: 2+ ASSESSMENT/PLAN: 1. Iron deficiency anemia secondary to inadequate dietary iron intake - ICD9: 280.1, ICD10: D50.8 (primary diagnosis) - CONSULT TO HEMATOLOGY - CBC + DIFF 2. 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 Dental infection - ICD9: 522.4, ICD10: K04.7 - stressed need for dental visit - CLINDAMYCIN HCL 300 MG CAPSULE 4. Swelling of left side of face - ICD9: 784.2, ICD10: R22.0 - see above - if worsening or having any trouble with vision, breathing, or swallowing needs to be seen in ER - CLINDAMYCIN HCL 300 MG CAPSULE Yuriy Marinelli APRN.PAPER COLORER CBC-COMPLETE BLOOD CNT Collected: 05/09/2018 Status: F Source: [place] NO DIFF 6:27 AM [facility] REPOSITORY Order Comment: Reason for Laboratory Test Day #1 TYPE CODE TESTS RESULT OUT OF RANGE REFERENCE UNITS LAB L100.1000 4.4-11.0 K/mm3 Normal WBC 8.4 LAB L100.1200 4.2-5.4 M/mm3 Low RBC 3.66 LAB L100.1300 12.0-15.0 g/dl Low HGB 10.4 LAB L100.1400 37-47 % Low HCT 32.8 LAB L100.1500 81-99 fL Normal MCV 89.6 LAB L100.1600 27.0-32.0 pg Normal MCH 28.4 LAB L100.1700 32-36 g/gl Low MCHC 31.7 LAB L100.1810 11.6-14.6 % High RDW CV 15.5 LAB L100.1820 35.1-43.9 fl High RDW SD 49.6 LAB L100.1900 150-450 K/mm3 Normal PLT 153 LAB L100.2000 6.2-12.0 fl Normal MPV 9.7 Performed By: #### L100.0500 #### [facility] [address] [place], [address] PROGRESS Observed: 05/08/2018 Status: COMPLETED Source: [place] 3:36 PM [facility] REPOSITORY HNO ID: [id number] Author: Gertrude Low LPN Service: (none) Author Type: (none) Type: Progress Notes Filed: 05/08/2018 3:37 PM Note Text: Pt delivered via at [facility] on 05/08/18 per Juanis Rowland CNM. See OB Outcome Note. Gertrude Low LPN DISCHARGE INSTRUCTION Observed: 05/08/2018 Status: F Source: [place] 2:00 PM [facility] REPOSITORY [facility] Medical Records Department [address] [place] [address] Instructions for Home/Discharge Instructions 05/08/18 1358 MR#: [id number] Acct: [id number] Name: MITCHELL LACEY Rep #: [id number] : 1985 33 From: Juanis Rowland CNM PCP: Jes Wood MD Status: ADM IN Discharge Diet: No Restrictions Discharge Activity: Return to Normal Activity, May not drive while taking narcotic pain medications., May Shower May resume sexual activity in: 4-6 weeks Additional Activity Instructions:: Nothing in the vagina for 4-6 weeks. You may return to work/school in 6 weeks. Call your doctor if your incision/area has: Continuous Slow Oozing, Sudden Increased Bleeding, Increased Pain/ Swelling, Increased Redness, Foul Smelling Discharge Call your doctor if you observe: Fever of 101 or Higher, Inability to urinate, Inability to have a bowel movement, Using more than one pad per hour Additional Instructions: If you experience any of the following, contact your healthcare provider. * Bleeding that soaks a pad every hour for 2 hours * Fever 100.4 or higher * Unrelieved incision or abdominal pain * Swelling, redness, discharge or bleeding from your incision or episiotomy site * Your incision begins to separate * Problems urinating (including inability to urinate or burning while urinating). * Visual changes * Severe headache * Flu-like symptoms * Pain or redness in one of both of your breasts * Pain, warmth, tenderness or swelling in your legs, especially the calf area * Frequent nausea and vomiting * Symptoms of depression or anxiety If you experience any of the following, call 911 or go to the nearest Emergency Room. * Chest pain * Problems breathing * Seizure activity * Partial or complete paralysis of a body part, slurred speech, weakness or drooping of the face, or a sudden inability to walk or hold your balance Allergies/Adverse Reactions: Allergies Penicillins Allergy (Verified 12/24/17 13:19) Rash Medications to take at Discharge Multivitamin [Multiple Vitamins] 1 each PO DAILY 08/11/16 Ibuprofen [Motrin] 600 mg PO Q6H PRN PRN tablet 05/08/18 Senna/Docusate Sodium [Senokot-S] 1 - 2 tablet PO DAILY PRN PRN tablet 05/08/18 Please Follow Up With: Juanis Rowland CNM When: Call to make an appointment with your provider in 2 weeks and 6 weeks. [facility] will contact your regarding scheduling PPTL surgery Primary Care Physician: Jes Wood MD [Primary Care Provider] - Test Results: Test results from this visit will be discussed in further detail at your follow-up appointment, if applicable. 05/08/18 1400 <Electronically signed by Juanis Rowland CNM> Date Juanis Rowland CNM CC: Jes Wood MD OPERATIVE REPORT Observed: 05/08/2018 Status: F Source: [place] 1:56 PM [facility] REPOSITORY [facility] Medical Records Department [address] [place] [address] Operative Report 05/08/18 1349 MR#: [id number] Acct: [id number] Name: MITCHELL LACEY Rep #: [id number] : 1985 33 From: Juanis Rowland CNM PCP: Jes Wood MD Status: ADM IN Y [facility] 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 Qualifiers: Fetus number: single or unspecified fetus Qualified Code(s): O36.1930 - Maternal care for other isoimmunization, third trimester, not applicable or unspecified Vaginal Delivery Maternal Presentation: Active Labor Amniotic Membrane Rupture Type: Spontaneous Rupture of Membrane time: 11:40am Amniotic Fluid Description: Clear Final CRIS: 05/15/18 Gestational age: 39 Weeks and 0 Days Date of Procedure: 05/08/18 Pre-Operative Diagnosis: Active Labor @ 39 weeks Post-Operative Diagnosis: of viable girl baby Surgery/ Procedure Performed: Spontaneous Vaginal Delivery Type of Anesthesia: None Description of Procedure: Patient progressed quickly to 9cm, unable to receive epidural as labor progressed so fast. Patient soon started to feel increased pelvic and rectal pressure and was found to be 9.5/100/0 with retractable cervical lip during contractions. Patient pushed well with encouragement and delivered viable girl baby over intact perineum at 1321. head delivered OA, restituted to CAROL and then LOT. Shoulders delivered without difficulty followed by body. Infant had spontaneous cry and respirations, was dried and stimulated and was placed on maternal chest for emni-dm-[id number]. mouth and nose bulb suctioned. Apgars 8 and 9. Umbilical cord clamped and cut once it stopped pulsing by patient's sister. Placenta then delivered spontaneously via Unger mechanism intact with 3VC. Of note, placenta was a bilobed placenta with velamentous cord insertion. FF, midline to massage and 3FB below umbilicus. IV pitocin infused per protocol for active management of the 3rd stage. Upon inspection of vaginal vault, no lacerations noted. No repair needed. Vaginal sweep negative. Sponge count correct. Patient electing to feed baby formula, skin-to skin contact continued at this time. [facility]. Juanis Rowland SENIOR APPLICATION SECURITY CONSULTANT-CNM Presentation: Vertex, CAROL Placental Delivery Description: Spontaneous Placenta Disposition: [facility] Cord Vessel Description: 3 Vessels Cord Entanglement: None Estimated Blood Loss: 150 A gender: Female (1 minute): 8 (5 minute): 9 Episiotomy Description: None Laceration: None Medications given after delivery: IV Pitocin Complications: None 05/08/18 1356 <Electronically signed by Juanis Rowland CNM> Date Juanis Rowland CNM CC: SARI Rowland; Jes Wood MD; Supriya Fournier MD Signed HISTORY AND PHYSICAL Observed: 05/08/2018 Status: F Source: [place] EXAM 12:32 PM [facility] REPOSITORY [facility] Medical Records Department [address] [place] [id number] History and Physical 05/08/18 1207 MR#: [id number] Acct: [id number] Name: MITCHELL LACEY Rep #: [id number] : 1985 33 From: Juanis Rowland CNM PCP: Jes Wood MD Status: ADM IN [facility] - Problem List (1) Iron deficiency anemia Status: Acute Qualifiers: Iron deficiency anemia type: inadequate dietary iron intake Qualified Code(s): D50.8 - Other iron deficiency anemias (2) 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 Patient reports initiation of strong contractions today that quickly became regular and more painful. On admission patient was found to be 6cm with BBOW by nursing staff - SROM for clear fluid on exam @ 1140am. Patient denies vaginal bleeding or decreased movement. Patient care initiated at 21 weeks x 8 visits. 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 Maternal titers have remained low during and have not increased. Allergies Penicillins Allergy (Verified 12/24/17 13:19) Rash Home Medications: Home Medications Multivitamin [Multiple Vitamins] 1 each PO DAILY 08/11/16 Smoking Status: Former smoker Alcohol: None Number of Fetus(es): 1 Heart Tracing: Baseline 145, moderate variability, + accels, no decels noted TOCO Analysis: Ctx q 2-3 minutes, palpate moderate to strong History Past Pregnancies: Past Pregnancies DeliveryName GA/WeeksOutcome Route [facility]al Perez [facility] Date [facility] Locatio n 11/2006 [place] 38 Live BirNSVD 7#6oz M Epidural th 12/2016 40+2 Live BirNSVD 8#4oz F Epidural th Labs: AB+, Abs Screen - + anti-c and anti-cW (titers stable at 4 and 2 respectively), Urine Tox Negative, Urine Culture Negative, GC Neg, CT Positive --> ANGY is Neg , HIV Neg, HepBsAg Neg, Rubella Immune, RPR Neg, 1 hour GCT = 103, Hgb = 10.4 --> 9.2, GBS neg Expected Infant Delivery Method: Spontaneous Vaginal Describe any other labor AND delivery plans:: Desires epidural Number of Visits: 8 Review of Systems Constitutional: Denies: Chills, Fever Eyes: Denies: Vision Change HEENT: Denies: Head Aches Cardiovascular: Denies: Edema Gastrointestinal: Reports: Abdominal Pain - Reports ctx q 2-3 minutes Genitourinary: Denies: Dysuria, Frequency, Urgency Gynecological: Reports: Vaginal discharge Psychiatric: Denies: Anxiety, Depression, Homicidal Ideations, Suicidal Ideations Hematologic/ Lymphatic: Reports: Anemia Physical Exam Vitals: See nursing assessment for vitals - patient afebrile and normotensive General: Alert, Oriented x3, No apparent distress HEENT: Atraumatic, Normocephalic. Negative for: Thyromegaly, Lymphadenopathy Cardiovascular: Regular rate, Regular Rhythm Lungs: Normal air movement Abdomen: Soft, Non Tender, Non-Distended, Gravid Neurological: Deep Tendon Reflexes 2+/4 and Symmetrical, Neuro grossly intact [employer]: Normal external genitalia. 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 1) Admit patient, Dr. Kwadwo CHO OB back-up aware of admission 2) T+C for 2 units PRBCs based on patient's hx of maternal anti-c and anti-cW antibodies 3) Expectant management at this time - epidural requested if time allows 4) Anticipate Juanis ARTHUR 05/08/18 1232 <Electronically signed by Juanis Rowland CNM> Date Juanis Rowland CNM Cosigner Signature: Date (if applicable) CC: SARI Rowland; Jes Wood MD Signed CBC-COMPLETE BLOOD CNT Collected: 05/08/2018 Status: F Source: [place] NO DIFF 11:45 AM [facility] REPOSITORY TYPE CODE TESTS RESULT OUT OF RANGE REFERENCE UNITS LAB L100.1000 4.4-11.0 K/mm3 High WBC 11.8 LAB L100.1200 4.2-5.4 M/mm3 Low RBC 3.71 LAB L100.1300 12.0-15.0 g/dl Low HGB 10.7 LAB L100.1400 37-47 % Low HCT 33.0 LAB L100.1500 81-99 fL Normal MCV 88.9 LAB L100.1600 27.0-32.0 pg Normal MCH 28.8 LAB L100.1700 32-36 g/gl Normal MCHC 32.4 LAB L100.1810 11.6-14.6 % High RDW CV 15.4 LAB L100.1820 35.1-43.9 fl High RDW SD 49.4 LAB L100.1900 150-450 K/mm3 Normal PLT 178 LAB L100.2000 6.2-12.0 fl Normal MPV 9.3 Performed By: #### L100.0500 #### [facility] [address] [place], [address] ABORH BLOOD TYPE, Collected: 05/08/2018 Status: F Source: [place] PATIENT 11:45 AM [facility] REPOSITORY TYPE CODE TESTS RESULT OUT OF RANGE REFERENCE UNITS LAB B100.1300 AB Normal BLOOD POSITIVE TYPE PT Performed By: #### B100.0000 #### [facility] [address] [place], [address] TYPE AND SCREEN Collected: 05/08/2018 Status: F Source: [place] 11:45 AM [facility] REPOSITORY Order Comment: Reason for Type AND Screen/Red Cells: ROUTINE TYPE CODE TESTS RESULT OUT OF REFERENCE UNITS RANGE LAB B100.4000 High Antibody POSITIVE Screen Performed By: #### B101.7450, B101.1999 #### [facility] [address] [place], [address] ANTIBODY PANEL ID Collected: 05/08/2018 Status: F Source: [place] 11:45 AM [facility] REPOSITORY Order Comment: Reason for Type AND Screen/Red Cells: ROUTINE TYPE CODE TESTS RESULT OUT OF REFERENCE UNITS RANGE LAB B101.2000 ANTIBODY PANEL Result Comment: ANTI-E ANTI-LITTLE c Performed By: #### B101.7450, B101.1999 #### [facility] [address] [facility] [place], [address] HOSP Observed: 05/08/2018 Status: COMPLETED Source: [place] 12:00 AM [facility] REPOSITORY Patient Update (WOOB) MITCHELL LACEY ([id number]) 1985 F Date Time Provider Department 05/08/18 JUANIS ROWLAND (SARI) LEWIS During your visit today, we recorded the following information about you: Gertrude Low LPN 05/08/2018 3:37 PM Signed Pt delivered via at [facility] on 05/08/18 per Juanis Rowland CNM. See OB Outcome Note. Gertrude Low LPN Allergies As of Date: 05/08/2018 Noted Allergy Reaction PENICILLINS 02/06/2014 16 - Unknown Comments: Pt believes she gets hives and a bad reaction Date Reviewed: 05/02/2018 Reviewed by: Mireya Mcnamara - Fully Assessed Prescriptions as of 05/08/2018 Sig: MULTIVITAMIN ORAL Take by mouth. VITAMIN,CALCIUM,MINE* Take 1 tablet by mouth. Problem List As Of Date 05/08/2018 Noted Resolved Supervision of normal first [Z34.00] INVALID FOR*05/03/2016 Custody issue [Z65.3] INVALID FOR*04/01/2018 More... History of depression [Z86.59] INVALID FOR* More... Stopped smoking [Z87.891] INVALID FOR*01/07/2018 More... Family history of sickle cell anemia [Z83.2] INVALID FOR* More... Patient requested diagnostic testing [Z01.89] INVALID FOR* More... Chlamydial infection [A74.9] INVALID FOR*01/07/2018 More... Trichomonas infection [A59.9] INVALID FOR*01/07/2018 More... Abnormal glucose complicating [O99.81*INVALID FOR*01/07/2018 More... Anemia complicating , second trimester*INVALID FOR* More... Short interval between pregnancies affecting pr*INVALID FOR* More... Late care affecting [O09.30] INVALID FOR* More... Prior labor, antepartum [O09.219] INVALID FOR* More... Quit smoking [Z87.891] INVALID FOR* More... Family history of congenital heart defect [Z82.*INVALID FOR* More... Marginal insertion of umbilical cord affecting *INVALID FOR* More... Maternal atypical antibody affecting *INVALID FOR* More... Abnormal antibody titer [R76.8] INVALID FOR*03/04/2018 Iron deficiency anemia secondary to inadequate *INVALID FOR* More... Iron malabsorption [K90.9] INVALID FOR* Encounter Status:Closed by GERTRUDE LOW LPN on 05/08/18 GROUP B STREP PCR Collected: 05/03/2018 Status: F Source: [place] 1:30 PM [facility] REPOSITORY TYPE CODE TESTS RESULT OUT OF REFERENCE UNITS RANGE LAB GBPCRT Negative for GROUP Group B B STREP PCR Streptococcus by PCR. Performed By: #### GBPCR #### [facility] [address] [address] CNPN Observed: 04/29/2018 Status: COMPLETED Source: [place] 12:00 AM [facility] REPOSITORY Telephone (WOOB) MITCHELL LACEY ([id number]) 1985 F Date Time Provider Department 04/29/18 JUANIS ROWLAND ([facility]) WOOB During your visit today, we recorded the following information about you: Juanis Rowland APRN.CNM 04/29/2018 2:18 PM Signed Phone call to patient, no answer. Left message on patient's voicemail box. Patient is currently 37+5weeks and was a no show for appt with me today. Last seen @ 33 weeks. I left a message for patient to call our office back immediately to reschedule her appointment and be seen for a first available [facility] appointment. Juanis Rowland APRN.SARI Zurita RN 04/30/2018 3:24 PM Signed Left message for patient to return phone call Rosa Rodriguez RN 05/02/2018 4:15 PM Signed Patient saw SW today. Rosa Rodriugez RN Allergies As of Date: 04/29/2018 Noted Allergy Reaction PENICILLINS 02/06/2014 16 - Unknown Date Reviewed: 04/10/2018 Reviewed by: Mitchell Mcdowell (Rn) CLIVE Sher - Fully Assessed Reason for Visit: Missed Appointment [1304] Prescriptions as of 04/29/2018 Sig: MULTIVITAMIN ORAL Take by mouth. VITAMIN,CALCIUM,MINE* Take 1 tablet by mouth. Problem List As Of Date 04/29/2018 Noted Resolved Supervision of normal first [Z34.00] INVALID FOR*05/03/2016 Custody issue [Z65.3] INVALID FOR*04/01/2018 More... History of depression [Z86.59] INVALID FOR* More... Stopped smoking [Z87.891] INVALID FOR*01/07/2018 More... Family history of sickle cell anemia [Z83.2] INVALID FOR* More... Patient requested diagnostic testing [Z01.89] INVALID FOR* More... Chlamydial infection [A74.9] INVALID FOR*01/07/2018 More... Trichomonas infection [A59.9] INVALID FOR*01/07/2018 More... Abnormal glucose complicating [O99.81*INVALID FOR*01/07/2018 More... Anemia complicating , second trimester*INVALID FOR* More... Short interval between pregnancies affecting pr*INVALID FOR* More... Late care affecting [O09.30] INVALID FOR* More... Prior labor, antepartum [O09.219] INVALID FOR* More... Quit smoking [Z87.891] INVALID FOR* More... Family history of congenital heart defect [Z82.*INVALID FOR* More... Marginal insertion of umbilical cord affecting *INVALID FOR* More... Maternal atypical antibody affecting *INVALID FOR* More... Abnormal antibody titer [R76.8] INVALID FOR*03/04/2018 Iron deficiency anemia secondary to inadequate *INVALID FOR* More... Iron malabsorption [K90.9] INVALID FOR* Encounter Status:Closed by JUANIS ROWLAND CNM on 04/29/18 TYPE AND SCR,PRENATL Collected: 04/02/2018 Status: F Source: [place] 3:34 PM [facility] REPOSITORY TYPE CODE TESTS RESULT OUT OF REFERENCE UNITS RANGE LAB %ABR ABO/RH(D) AB POSTIVE LAB % Antibody POS Screen Performed By: #### TSPN #### [facility] [address] [place], [place] [address] RBC ANTIBODY INTERP Collected: 04/02/2018 Status: F Source: [place] (LAB ORDERED) 3:34 PM [facility] REPOSITORY TYPE CODE TESTS RESULT OUT OF REFERENCE UNITS RANGE LAB ABINT Antibody (NOTE) Interp Result Comment: Clinically significant anti-c and anti-Cw antibodies are established by history in this patient. The current sample (collected on 04/02/2018) was tested in parallel with the previous sample (collected on 03/04/2018) against c homozygous Cw negative reagent red cells. The anti-c titer of the current sample is 8. The anti-c titer of the previous sample tested in parallel is 8. Indicating no increase in the anti-c titer. The current sample (collected on 04/02/2018) was also tested in parallel with the previous sample (collected on 03/04/2018) against Cw positive c negative reagent red cells. The anti-Cw titer of the current sample is 2. The anti-Cw titer of the previous sample tested in parallel is 2. Indicating no increase in the anti-Cw titer. A titer of 16 or greater is considered critical. For patients with titer levels below critical levels, ongoing monitoring of antibody titers is recommended at approximately 4 week intervals beginning at weeks 16-18 of gestation. Frequency of testing may require increase to approximately 2 week intervals with increasing gestational age, evidence of rising titers, or increased clinical concern for the development of anemia. LAB BBPATH Physician Signed Review by Mary Kate Fink MD ([id number]) Performed By: #### ABINTB #### [facility] [address] [place], [place] [address] PROGRESS Observed: 04/01/2018 Status: COMPLETED Source: [place] 11:48 AM [facility] REPOSITORY HNO ID: [id number] Author: Atiya Cooley Ma Service: (none) Author Type: (none) Type: Progress Notes Filed: 04/01/2018 12:18 PM Note Text: Patient identified by name and date of . Mitchell Lacey presents today for a vaccination of Tdap. Patient denies an allergy to latex: yes Patient denies a severe (life-threatening) allergy to a previous dose of Tdap, DTP, DTaP, DT or Td vaccine. Yes Patient denies history of epilepsy or neurological problems: Yes Patient is afebrile and denies being moderately or severely ill: Yes Patient denies history of Guillain-Raleigh Syndrome (a severe paralytic illness): Yes Tdap Adacel injection was given without incident. See immunizations for details of immunizations administered today. VIS sheet provided: Yes Provider Juanis Rowland CNM was present in office at time of injection. Atiya Cooley Ma PROGRESS Observed: 03/21/2018 Status: COMPLETED Source: [place] 6:59 PM [facility] REPOSITORY HNO ID: [id number] Author: Juanis Rowland Service: (none) Author Type: Medical Attendant Type: Progress Notes Filed: 03/21/2018 6:59 PM Note Text: KZ/CM-S: Patient is 32w1d and presents for follow-up visit today. No VB/LOF. Denies chest pain, visual changes, dysuria or SOB. Good movement. Experiencing headaches everyday. Will occasionally take 1000mg Tylenol, but reports it does not give relief so she will try to just cope without taking anything. Patient is anemic and has not responded well to PO iron- patient to schedule IV iron infusions. O: See flow sheet General: Pleasant and in no apparent distress. Abdomen: NT x 4 quadrants, S=D, Gravid Extremities: No edema in LE A/P: 32w1d IUP. Anemia in in Third Trimester, Atypical antibody affecting . RTO 2 Weeks for follow up. Call with LOF, VB, DFM or cramping/contractions. 1. Encounter for supervision of other normal in third trimester -[facility] teaching and PTL precautions reviewed - URINE OB DIP B/O 2. 32 weeks gestation of -Flu vaccine and Tdap vaccine discussed - patient is unsure. CDC recommendations discussed, patient encouraged to receive. Will revisit at next visit. - URINE OB DIP B/O 3. Anemia of in third trimester -IV iron infusion to be scheduled - CONSULT TO HEMATOLOGY 4. Maternal atypical antibody affecting in 3rd trimester -Repeat Antibody Screen at n.v. In 2 weeks. Juanis Rowland APRN.CNM IRON AND TIBC Collected: 03/20/2018 Status: F Source: [place] 12:19 PM [facility] REPOSITORY TYPE CODE TESTS RESULT OUT OF REFERENCE UNITS RANGE LAB IRN 41-186 ug/dL Iron 45 LAB TIBC 232-386 ug/dL TIBC High 497 LAB SAT 15-57 % Low Transferrin Saturatn 9 Performed By: #### IRON, FERR #### [facility] [address] [place] [address] FERRITIN Collected: 03/20/2018 Status: F Source: [place] 12:19 PM [facility] REPOSITORY TYPE CODE TESTS RESULT OUT OF REFERENCE UNITS RANGE LAB FERR 14.7-205.1 ng/mL Low Ferritin 7.5 Performed By: #### IRON, FERR #### [facility] [address] [place] [address] CBC AND DIFFERENTIAL Collected: 03/04/2018 Status: F Source: [place] 12:40 PM [facility] REPOSITORY TYPE CODE TESTS RESULT OUT OF REFERENCE UNITS RANGE LAB WBC 3.70-11.00 k/uL WBC High 11.31 LAB RBC 3.90-5.20 m/uL Low RBC 3.30 LAB HGB 11.5-15.5 g/dL Low Hemoglobin 9.2 LAB HCT 36.0-46.0 % Low Hematocrit 29.1 LAB MCV 80.0-100.0 fL MCV 88.2 LAB MCH 26.0-34.0 pG MCH 27.9 LAB MCHC 30.5-36.0 g/dL MCHC 31.6 LAB RDWCV 11.5-15.0 % RDW-CV 12.8 LAB PLTCT 150-400 k/uL Platelet Count 268 LAB MPV 9.0-12.7 fL MPV 9.9 LAB ANEUT % Neut% 80.3 LAB AANEUT 1.45-7.50 k/uL Abs Neut High 9.09 LAB ALYMP % Lymph% 14.0 LAB AALYMP 1.00-4.00 k/uL Abs Lymph 1.58 LAB AMONO % Stearns% 4.8 LAB AAMONO <0.87 k/uL Abs Stearns 0.54 LAB AEOS % Eosin% 0.6 LAB AAEOS <0.46 k/uL Abs Eosin 0.07 LAB ABASO % Baso% 0.3 LAB AABASO <0.11 k/uL Abs Baso 0.03 LAB AUNRBC 0 /100 WBC NRBCs 0.0 LAB ABNRBC <0.01 k/uL Absolute nRBC <0.01 LAB DTYP DTYPE Auto Diff Performed By: #### CBCDIF #### [place] [id number] [place] [id number] 50G, 1HR GEST. Collected: 03/04/2018 Status: F Source: [facility] 12:40 PM [facility] REPOSITORY TYPE CODE TESTS RESULT OUT OF REFERENCE UNITS RANGE LAB GLUP 74-134 mg/dL Glucose 103 Screen, Preg Result Comment: [place] [employer] (Louis/Shannan) guidelines state a gestational diabetes mellitus positive screen is made, in women not previously diagnosed with overt diabetes, when the 1 hr plasma glucose level is equal to or above 140 mg/dL. The [facility] [employer] [facility] and [facility] [place] recommends a 135 mg/dL cutoff. Performed By: #### GLTGST #### [facility] [place], [place] [address] TYPE AND SCR,PRENATL Collected: 03/04/2018 Status: F Source: [place] 12:40 PM [facility] REPOSITORY TYPE CODE TESTS RESULT OUT OF REFERENCE UNITS RANGE LAB %ABR AB ABO/RH(D) POSTIVE LAB % Antibody Screen POS LAB %PETRA Antibody Identified ANTIBODY REACTIVITY, No Apparent Specificity. Performed By: #### TSPN #### [facility] [place], [place] [address] RBC ANTIBODY INTERP Collected: 03/04/2018 Status: F Source: [place] (LAB ORDERED) 12:40 PM [facility] REPOSITORY TYPE CODE TESTS RESULT OUT OF REFERENCE UNITS RANGE LAB ABINT Antibody (NOTE) Interp Result Comment: Anti-c and anti-Cw were previously identified. The anti-c titer is 4 and the anti-Cw titer is 2 on both the current sample and a frozen aliquot of the 02/18/18 sample, indicating no increase in titer. In the presence of anti-c, anti-E cannot be ruled out, but other major alloantibodies are ruled out. Additional serological reactivity is noted against a few c-Cw- test cells, but no specificity is apparent. Testing on future samples may help determine if this reactivity represents an evolving antibody. Repeat maternal testing is recommended in approximately 4 weeks. If RBC transfusion is needed, units must be c-E-Cw- and compatible on the antiglobulin crossmatch. LAB BBPATH Physician Signed by Raleigh Schafer MD ([id number]) Performed By: #### ABINTB #### [facility] [address] [place], [place] [address] PROGRESS Observed: 02/26/2018 Status: COMPLETED Source: [place] 8:36 AM [facility] REPOSITORY HNO ID: [id number] Author: Mireya Mcnamara Service: (none) Author Type: Physician Type: Progress Notes Filed: 02/26/2018 8:36 AM Note Text: Can you please let the patient know her antibody titers were unchanged? We will continue to follow them every 4 weeks. Thanks! GC/CHLAMYDIA AMPLIF Collected: 02/18/2018 Status: F Source: [place] 12:15 PM [facility] REPOSITORY TYPE CODE TESTS RESULT OUT OF REFERENCE UNITS RANGE LAB GCCTSR GC/Chlam Amp Cervix Source LAB GCAMPL GC Negative Amplification for Neisseria gonorrhoeae by amplification. LAB CLAMPL Chlamydia Negative Amplif for Chlamydia trachomatis by amplification. Performed By: #### GCCT #### [facility] [address] [place], [place] [address] TYPE AND SCR,PRENATL Collected: 02/18/2018 Status: F Source: [place] 11:10 AM [facility] REPOSITORY TYPE CODE TESTS RESULT OUT OF REFERENCE UNITS RANGE LAB %ABR ABO/RH(D) AB POSTIVE LAB % Antibody POS Screen Performed By: #### TSPN #### [facility] [address] [place], [place] [address] RBC ANTIBODY INTERP Collected: 02/18/2018 Status: F Source: [place] (LAB ORDERED) 11:10 AM [facility] REPOSITORY TYPE CODE TESTS RESULT OUT OF REFERENCE UNITS RANGE LAB ABINT Antibody (NOTE) Interp Result Comment: Anti-c (anti-little c) and anti-Cw antibodies are previously and currently identified. The anti-little c antibody titer is 4 and the anti-Cw antibody titer is 2. These titers are unchanged from the previous sample. Little c and Cw are red cell antigens in the Rh blood group system. Antibodies to these antigens are clinically significant with regard to both transfusion and Hemolytic Disease of the Fetus and (HDFN) in a woman. With regard to HDFN, critical titers for HDFN for red cell antibodies other than anti-D are not firmly established, although a critical titer similar to anti-D (16 or greater) is typically used. Testing the current and previous sample (02/05/2018) in parallel by incubated saline at [facility] (anti-human globulin or Arun phase) was performed, with the following results: Testing against a c+C-Cw- reagent red cell, the anti-little c titer was 4 for both current and previous samples Testing against a c-C+Cw+ reagent red cell, the anti-Cw titer was 2 for both current and previous samples. Anti-little c and anti-Cw titers of 4 and 2, respectively, are not typically associated with a clinically significant risk of HDFN, unless there is already a history of an affected fetus, in which case titers cannot be used as the sole method to assess risk. Clinical correlation is recommended, with continued monitoring of antibody titers and status as clinically indicated. For patients with titers below critical levels, ongoing monitoring of antibody titers is recommended at approximately 4 week intervals. The frequency of antibody titers may be increased in case of rising antibody titers and/or increasing gestational age. If not previously performed, paternal phenotype testing for little c and Cw may be helpful in assessing risk ([facility] order code for paternal sample is ABOAG; please specify the maternal antibody in the comment for appropriate testing). For transfusion purposes, antibodies to little c and Cw are clinically significant and may cause red cell hemolysis if antigen positive units are transfused; therefore, transfusion of antigen negative units is required. Although antibodies to big E, another Rh antigen, are not currently identified, RBC units for transfusion will be prophylactically negative for big E as patients negative for little c and big E frequently form antibodies against both antigens. Only approximately 17% of Rh Positive donors are expected to be negative for big E and little c; the vast majority of these donors are also expected to be negative for Cw. Transfusion of Rh Negative units should be avoided as the majority of Rh Negative units are expected to be positive for little c. A minimum of 6 to 8 hours may be required for pre-transfusion testing for identification and crossmatching of compatible RBC units. Additional time will be required if multiple units are requested. For the best estimate of time required for blood availability, please communicate directly with the blood bank at the hospital where the transfusion will take place. Faviola Chatman MD, MPH LAB BBPATH Physician Signed Review by Faviola Chatman MD MPH ([id number]) Performed By: #### ABINTB #### [facility] [address] [place], [place] [address] CBC Collected: 02/05/2018 Status: F Source: [place] 2:30 PM [facility] REPOSITORY TYPE CODE TESTS RESULT OUT OF REFERENCE UNITS RANGE LAB WBC 3.70-11.00 k/uL WBC High 15.69 LAB RBC 3.90-5.20 m/uL Low RBC 3.76 LAB HGB 11.5-15.5 g/dL Low Hemoglobin 10.4 LAB HCT 36.0-46.0 % Low Hematocrit 33.6 LAB MCV 80.0-100.0 fL MCV 89.4 LAB MCH 26.0-34.0 pG MCH 27.7 LAB MCHC 30.5-36.0 g/dL MCHC 31.0 LAB RDWCV 11.5-15.0 % RDW-CV 13.2 LAB PLTCT 150-400 k/uL Platelet Count 303 LAB MPV 9.0-12.7 fL MPV 10.0 LAB ABSNUC <0.01 k/uL Absolute nRBC <0.01 Performed By: #### CBC, RUBIGG, SYPHGX, HBSAG, HIV12C, ALT, AST, BUN, CRET1, URIC #### [place] [phone] RUBELLA IGG ANTIBODY Collected: 02/05/2018 Status: F Source: [place] 2:30 [facility] REPOSITORY TYPE CODE TESTS RESULT OUT OF RANGE REFERENCE UNITS LAB RUBGQL Negative Abnormal Rubella IgG Positive Alert Ab, Qual Result Comment: Sample is considered positive for IgG antibodies to rubella virus. A positive result indicates previous exposure to Rubella virus or vaccination. LAB RUBQNT Index Value Rubella IgG Ab 1.40 Result Comment: Index values are interpreted as follows: Negative specimens <0.90 Equivocol specimens 0.90 to 0.99 Positive specimens >0.99 The magnitude of the measured result is not indicative of the amount of antibody present. Performed By: #### CBC, RUBIGG, SYPHGX, HBSAG, HIV12C, ALT, AST, BUN, CRET1, URIC #### [place] [phone] SYPHILIS IGG WITH Collected: 02/05/2018 Status: F Source: [facility] [address] [place] [address] REPOSITORY TYPE CODE TESTS RESULT OUT OF REFERENCE UNITS RANGE LAB SYPHQL Nonreactive Syphilis IgG, Nonreactive Qual Result Comment: No serological evidence of infection with T. pallidum. LAB SYPHLG AI Syphilis IgG <0.2 Result Comment: Antibody index is interpreted as follows: Non reactive SPECIMENS <=0.8 Weak reactive SPECIMENS 0.9 to 5.9 Reactive SPECIMENS >=6.0 Performed By: #### CBC, RUBIGG, SYPHGX, HBSAG, HIV12C, ALT, AST, BUN, CRET1, URIC #### [place] [address] HEPATITIS B SURF. AG Collected: 02/05/2018 Status: F Source: [place] 2:30 [facility] REPOSITORY TYPE CODE TESTS RESULT OUT OF REFERENCE UNITS RANGE LAB HBSAG Negative Hepatitis B Negative Surf. Ag Performed By: #### CBC, RUBIGG, SYPHGX, HBSAG, HIV12C, ALT, AST, BUN, CRET1, URIC #### [place] [phone] HIV 12 COMBO (AG/AB) Collected: 02/05/2018 Status: F Source: [place] 2:30 PM [facility] REPOSITORY TYPE CODE TESTS RESULT OUT OF REFERENCE UNITS RANGE LAB HVAGAB Non Reactive HIV Non Reactive 12 Ag/Ab Result Comment: (NOTE) HIV Information: [place] Rev. Code 3701.243(E): This information has been disclosed to you from confidential records protected from disclosure by state law. You shall make no further disclosure of this information without the specific, written, and informed release of the individual to whom it pertains, or as otherwise permitted by state law. A general authorization for the release of medical or other information is not sufficient for the purpose of the release of HIV test results or diagnoses. Performed By: #### CBC, RUBIGG, SYPHGX, HBSAG, HIV12C, ALT, AST, BUN, CRET1, URIC #### [place] [id number] ALT Collected: 02/05/2018 Status: F Source: [place] 2:30 PM [facility] REPOSITORY TYPE CODE TESTS RESULT OUT OF RANGE REFERENCE UNITS LAB ALT 7-38 U/L ALT 9 Performed By: #### CBC, RUBIGG, SYPHGX, HBSAG, HIV12C, ALT, AST, BUN, CRET1, URIC #### [place] [address] AST Collected: 02/05/2018 Status: F Source: [place] 2:30 PM [facility] REPOSITORY TYPE CODE TESTS RESULT OUT OF RANGE REFERENCE UNITS LAB AST 13-35 U/L AST 14 Performed By: #### CBC, RUBIGG, SYPHGX, HBSAG, HIV12C, ALT, AST, BUN, CRET1, URIC #### [place] [address] BUN Collected: 02/05/2018 Status: F Source: [place] 2:30 PM [facility] REPOSITORY TYPE CODE TESTS RESULT OUT OF RANGE REFERENCE UNITS LAB BUN 7-21 mg/dL BUN 7 Performed By: #### CBC, RUBIGG, SYPHGX, HBSAG, HIV12C, ALT, AST, BUN, CRET1, URIC #### [facility] [address] [place], [place] [address] CREATININE Collected: 02/05/2018 Status: F Source: [place] 2:30 PM [facility] REPOSITORY TYPE CODE TESTS RESULT OUT OF REFERENCE UNITS RANGE LAB CRET 0.58-0.96 mg/dL Low Creatinine 0.55 LAB GFRAA eGFR- >60 Amer. LAB GFRNAA . eGFR-All Other Races >60 Result Comment: eGFR (Estimated GFR) Units of measure: mL/min/1.73 meters squared eGFR is derived from the reexpressed MDRD Study equation using the following parameters: serum creatinine, age, gender and race. The creatinine assay has been calibrated to be traceable to IDMS. An eGFR <60 mL/min/1.73m2 for >3 months is consistent with chronic kidney disease. Refer to KDOQI guidelines for clinical interpretation. In patients with unstable renal function, e.g. those with acute kidney injury, the eGFR may not accurately reflect actual GFR. Performed By: #### CBC, RUBIGG, SYPHGX, HBSAG, HIV12C, ALT, AST, BUN, CRET1, URIC #### [facility] [address], [place] [address] URIC ACID Collected: 02/05/2018 Status: F Source: [place] 2:30 PM [facility] REPOSITORY TYPE CODE TESTS RESULT OUT OF RANGE REFERENCE UNITS LAB URIC 2.5-6.6 mg/dL Uric Acid 3.5 Performed By: #### CBC, RUBIGG, SYPHGX, HBSAG, HIV12C, ALT, AST, BUN, CRET1, URIC #### [facility] [address] [place], [place] [address] RBC ANTIBODY INTERP Collected: 02/05/2018 Status: F Source: [place] (LAB ORDERED) 2:30 PM [facility] REPOSITORY TYPE CODE TESTS RESULT OUT OF REFERENCE UNITS RANGE LAB ABINT Antibody (NOTE) Interp Result Comment: Anti-c and anti-Cw are present, directed against antigens of the Rh blood group system. These are clinically significant antibodies that can cause hemolytic transfusion reaction and hemolytic disease of the fetus and (HDFN). The anti-c titer is 4 (against a c+C-Cw- test cell) and the anti-Cw titer is 2 (against a c-C+Cw+ test cell). Antibody titer below 16 is typically not associated with the risk of hemolysis, however, the titer may not be used to assess risk if the patient had a previous affected by HDFN. Repeat maternal testing is recommended in approximately 4 weeks. Approximately 20% of people are c-negative and almost all are expected to be Cw-negative. Testing the paternal sample for the c and Cw antigen may be helpful in determining the risk to the fetus; Testing on the paternal sample may be ordered using EMR order code [id number]. Please state the specificity of the maternal antibody (anti-c and anti-Cw, in this case) on the order. I have discussed this result with Layton Moreno CNM. In the presence of anti-c, anti-E cannot be ruled out, but other major alloantibodies are ruled out. If RBC transfusion is needed, units must be c-E-Cw- and compatible on the antiglobulin crossmatch. LAB BBPATH Physician Signed by Raleigh Schafer MD ([id number]) Performed By: #### ABINTB #### [facility] [address] [place], [place] [address] TYPE AND SCR,PRENATL Collected: 02/05/2018 Status: F Source: [place] 2:30 PM [facility] REPOSITORY TYPE CODE TESTS RESULT OUT OF REFERENCE UNITS RANGE LAB %ABR ABO/RH(D) AB POSTIVE LAB % Antibody Screen POS LAB %PETRA Antibody Identified Result Comment: ANTI-c PRESENT. ANTI-Cw PRESENT. Performed By: #### TSPN #### [facility] [address] [place], [place] [address] Observed: 02/05/2018 Status: F Source: [place] URINE CULTURE 2:00 PM [facility] REPOSITORY Sp. Request/Comment: - Specimen received in preservative Culture Result - No growth (<1,000 CFU/ml) Performed By: #### URCUL #### [facility] [address] [place], [place] [address] PROGRESS Observed: 01/07/2018 Status: COMPLETED Source: [place] 11:39 AM [facility] REPOSITORY O ID: [id number] Author: Emily Montero Service: (none) Author Type: Physician Type: Progress Notes Filed: 01/07/2018 11:42 AM Note Text: A elliott intrauterine The size is AGA Estimated Date of Delivery: 05/15/18 EGA = 21w5d The anatomy appears normal in the areas visualized. The amniotic fluid volume is normal. There is no evidence of effusions and/ or hydrops. The placenta is fundal. RECOMMENDATIONS: - Self-assessment of kick counts - Follow up ultrasound as clinically indicated TOXICOLOGY SCREEN,UR Collected: 01/07/2018 Status: F Source: [place] 9:00 AM [facility] REPOSITORY TYPE CODE TESTS RESULT OUT OF REFERENCE UNITS RANGE LAB UPCP2 Negative Negative Phencyclidin e, Urine Result Comment: Cutoff threshold at 25 ng/mL. LAB UBENZ2 Negative Benzodiazepines, Ur Negative Result Comment: Cutoff threshold at 200 ng/mL. LAB UCOC2 Negative Cocaine, Negative Urine Result Comment: Cutoff threshold at 300 ng/mL. LAB UAMPH2 Negative Amphetamines, Urine Negative Result Comment: Cutoff threshold at 1000 ng/mL. LAB UTHC2 Negative Cannabinoids, Urine Negative Result Comment: Cutoff threshold at 50 ng/mL. LAB UOPI2 Negative Opiates, Negative Urine Result Comment: Cutoff threshold at 300 ng/mL. LAB UBARB2 Negative Barbiturates, Urine Negative Result Comment: Cutoff threshold at 200 ng/mL. LAB UETOH <11 mg/dL <11 Ethanol, Urine LAB UOXYC Negative Oxycodone, Negative Urine Result Comment: Cutoff threshold at 100 ng/mL. Comment: Immunoassay screen only. Cross reactivity with other substances can occur with immunoassay screening. Detection of any drug(s) in this urine toxicology panel is presumptive only. These tests are for med ical purposes only and should not be used for compliance monitoring, legal, or forensic use. Samples should be within normal physiological conditions (e.g. pH). This assay does not include adulteration/specimen validity testing. In clinical settings, confirmatory testing is at the practitioner's discretion [1]. If clinically indicated, confirmation by high specificity, quantitative methodology, which includes adulteration/spec imen validity testing, may be requested on the same specimen through Client Services ([phone]) if contacted within 48 hours of initial testing. [1]Substance Abuse and Mental Health Services Administration (2012). Clinical Drug Testing in Primary Care Technical Assistance Publication Series 32. Department of Health and Human Services, [place], p.10. These tests were developed and their performance characteristics determined by [facility] [place] ([facility]). They have not been cleared or a pproved by the FDA. [facility] is regulated under CLIA as qualified to perform high complexity testing. These tests are used for clinical purposes. They should not be regarded as investigational or for research. Performed By: #### UTOX2 #### [facility] [address] [place], [place] [id number] GC/CHLAMYDIA AMPLIF Collected: 01/07/2018 Status: F Source: [place] 9:00 AM [facility] REPOSITORY TYPE CODE TESTS RESULT OUT OF RANGE REFERENCE UNITS LAB GCCTSR GC/Chlam Amp Source Cervix LAB GCAMPL GC Amplification Negative for Neisseria gonorrhoeae by amplification. LAB CLAMPL Chlamydia Abnormal Amplif Positive for Alert Chlamydia trachomatis by amplification. Result Comment: In low prevalence populations, the likelihood of a false positive may be higher than a true positive. Retesting by another method may be appropriate for patients who lack risk factors or clinical signs and symptoms consistent with infection. Performed By: #### GCCT #### [facility] [address] [place], [place] [address] PROGRESS Observed: 01/07/2018 Status: COMPLETED Source: [place] 8:55 AM [facility] REPOSITORY HNO ID: [id number] Author: Juanis Rowland Service: (none) Author Type: Medical Attendant Type: Progress Notes Filed: 01/07/2018 12:23 PM Note Text: INITIAL OB ASSESSMENT OB Provider: Amber Singer Ma HPI: Mitchell Lacey is a 32 year old female here to establish Obstetrical Care. Patient's last menstrual period was 11/24/2017 (lmp unknown). from OB Dating Form. Cycle length: 28 days. Patient had monthly cyclical bleeding up until end of November. Didn't know she was . Complaints: Round ligament pain and PAYNE. Reports PAYNE, every other day. Drinking Water. Tylenol doesn't help. No N/V. was unplanned but accepted. Obstetric History T2 L2 SAB0 TAB0 Ectopic1 Multiple0 Live Births2 Prior : never History of 4th degree laceration: No Patient's Risk Screening for delivery: History of abnormal pap: No Prior treatment for cervical dysplasia: none. History of STDs: chlamydia Tobacco use: No Caffeine use: Yes - 1 or 2 cups of coffee daily Drug use: No - not currently. Prior to knowing she was she smoked marijuana. Reports rare use. Alcohol use: No Multivitamin with Folic acid: Yes - take multivitamin at this time Occupation: [email or web address] or [employer]: No Would refuse blood transfusion if medically necessary: No BMI 22.03 kg/(m2) Patient BMI over 30? No Marital Status:Committed relationship Partner: Name: Suhas Age: 24 Occupation: Unemployed Currently Gender: male History of STDs: None FOB has sickle cell trait PAST MEDICAL HISTORY Diagnosis Date - Anemia - Chlamydia - Dysthymic disorder Depression (non-psychotic) - fracture 11 years old left wrist and arm, playground accident - Ruptured ectopic PAST SURGICAL HISTORY Procedure Laterality Date - IMPLANON 03/26/07 Dr. Romero - IMPLANON REMOVAL 09/09/2012 - SALPINGECTOMY 08/29/14 Right Current Outpatient Prescriptions on File Prior to Visit: FERROUS SULFATE (IRON ORAL) Take by mouth. MULTIVITAMIN ORAL Take by mouth. Rqaumjaj-Iz-Kwv-Fe-FA ( VITAMIN) tab Take 1 tablet by mouth. No current facility-administered medications on file prior to visit. Review of Systems: GENERAL: Negative for: Fever or Chills HEENT: Negative for: Headache, Impaired Vision, Ringing in Ears, Nosebleeds NECK: Negative for: Swelling, Pain, Stiffness RESPIRATORY: Negative for: Cough, Shortness of breath, Wheezing GASTROINTESTINAL: Negative for: Heartburn, Constipation, Diarrhea, Blood in stool, Vomiting MUSCULOSKELETAL: Negative for: Muscle or joint pain, stiffness, Joint swelling NEUROLOGIC/PSYCHIATRIC: Negative for: Weakness, Paralysis, Numbness, Tingling, Tremor, Anxiety, Depression, Memory loss SKIN: Negative for: Rash, Itching GENITOURINARY: Negative for: vaginal itching, vaginal discharge, hematuria or dysuria PHYSICAL EXAM: BP 102/56 Wt 134 lb 6.4 oz (61.0kg) LMP 11/24/2017 GENERAL: pleasant female in no apparent distress DERMATOLOGY: Normal, without lesions, non-icteric and non-hirsute NECK: Supple, full range of motion, no adenopathy and thyroid normal CHEST: Normal inspiratory effort BREAST: soft, non-tender, symmetric, no dominant mass, normal nipple-areolar complex, no lymphadenopathy and no nipple discharge ABDOMEN: soft, non-tender and no masses NEURO: alert and oriented x3,exam grossly non-focal PELVIS: External genitalia normal without lesions. Perineal body intact. No vaginal or cervical lesions. Cervix closed. Uterus 21 week size. No adnexal masses or tenderness. Clinical Pelvimetry: Pelvimetry clinically assessed as adequate - proven to 8#4oz Limited OB ultrasound exam: not performed, 2nd trimester anatomy u/s scheduled today ASSESSMENT: 32 year old at 21.5 wks gestational age PLAN: 1) Patient oriented to practice. Discussed nutrition, folic acid supplementation, dietary guidelines, exercise, smoking, alcohol, caffeine, and drug use. Discussed routine OB labs including STD/HIV. 2) 2nd trimester anatomy ultrasound done today 3) [facility] teaching and PTL precautions done today 4) PAYNE evacuation remedies discussed; patient to try hydration, extra strength Tylenol and caffeine (less than 200mg/day) Follow up in 4 weeks or sooner prn. Juanis Rowland APRN.CNM PROGRESS Observed: 01/03/2018 Status: COMPLETED Source: [place] 9:54 AM [facility] REPOSITORY [facility] ID: [id number] Author: Quin Zurita RN Service: (none) Author Type: (none) Type: Progress Notes Filed: 01/03/2018 6:05 PM Note Text: #: 1, Date: [birth year]17/06, Sex: Male, Weight: 7 lb 6 oz (3.345 kg), GA: 38w0d, Delivery: VAGINAL , Apgar1: None, Apgar5: None, Living: Living, Comments: threated PTL x 2, treated with medication, lives with other fmily #: 2, Date: 08/29/14, Sex: None, Weight: None, GA: None, Delivery: None, Apgar1: None, Apgar5: None, Living: None, Comments: None #: 3, Date: 12/25/16, Sex: Female, Weight: 8 lb 4 oz (3.742 kg), GA: 40w2d, Delivery: Vaginal, Spontaneous Delivery, Apgar1: 8, Apgar5: 9, Living: Living, Comments: spontaneous labor, PROM,pitocin induction, EBL 400cc #: 4, Date: None, Sex: None, Weight: None, GA: None, Delivery: None, Apgar1: None, Apgar5: None, Living: None, Comments: None CNNURSE Observed: 01/03/2018 Status: COMPLETED Source: [place] 9:30 AM [facility] REPOSITORY Nurse Visit (WOOB) MITCHELL LACEY ([id number]) 1985 F Date Time Provider Department 01/03/18 9:30 AM NURSE PNOB [facility] WSTR WOOB During your visit today, we recorded the following information about you: Quin Zurita RN 01/03/2018 9:46 AM Signed SEQUENTIAL SCREENINGS The [facility] offers sequential screenings for women who are interested in screenings for chromosomal abnormalities and certain defects during a . The sequential screen combines ultrasound and blood tests to determine the risk of chromosomal abnormalities, including Down's Syndrome (Trisomy 21) and Trisomy 18, as well as open neural tube defects including spina bifida. Ultrasound examination is performed between 11 weeks and 13 weeks gestational age. Blood tests are drawn after the ultrasound and again later in the between 15 and 21 weeks gestational age. Please let your physician know if you are interested in this testing. It will require an appointment with our civil technician. This is not an ultrasound performed by a physician in our office during a routine visit. SIGNS AND SYMPTOMS OF LABOR 1. Contractions every 10 minutes or more often 2. Clear, pink, or brownish fluid (water) leaking from vagina 3. Feeling that baby is pushing down, pressure 4. Low, dull backache 5. Cramps that feel like a period 6. Cramps with or without diarrhea If you notice any of the above symptoms, contact our office at [phone] and ask to speak with a nurse. After hours, you can call doctors registry at [phone] OR call [facility] at [phone] and ask to have the doctor director of industrial relations paged. If you consider this an emergency, dial 9-1-1 or go to your nearest emergency department. Cord-Blood Banking Up until recently, the umbilical cord--along with the blood that remained in it after a baby was born and the cord cut--was simply discarded by the hospital. Then, in the late , researchers discovered that cord blood possessed unusual properties that made it useful in the treatment of patients with some cancers and other illnesses. While the actual process of collecting cord blood is straightforward, many parents are not even aware that this option now exists, much less familiar with all the issues involved. The case for saving your baby's cord blood The blood running back and forth between your baby and the placenta is full of immature cells called stem cells. Unlike embryonic stem cells, which have the ability to develop into any type of body cell, cord-blood stem cells already are locked into a certain, vital function: making all the different components of the blood, such as platelets, white blood cells, and red blood cells-serving, in effect, like bone marrow. When transfused into a patient whose own blood cells have faulty genetic coding or have been destroyed by chemotherapy or other cancer treatments, the cord-blood cells can implant themselves in the bone marrow and generate legions of new, healthy cells. These days, cord-blood transplants most commonly are used in cancer patients when a donor can't be found for a bone-marrow transplant. The treatment is particularly effective in young patients-the [facility] reports a 70 percent success rate in children, but only 20 to 40 percent in adults. Researchers envision improving those odds and see many future applications as well, such as curing sickle cell disease and other blood-related genetic illnesses. So there is a possibility that your child, or someone else, may need these super-healthy and versatile cells one day. The drawbacks Aside from not knowing about this medical option, the main reason most people do not save their baby's stem cells is cost. In a private blood bank, the initial costs run from $275 to $1,500. Most also charge a yearly storage fee of $50 to $95. The advantage of using a private bank is that your sample is saved for only you to use. An alternative to private banking Public cord-blood suarez are an alternative. These cost no money to use, but your sample is not specifically saved for you. Another person with a more immediate need may use it. If the time should come that you need stem cells, yours may still be available, or you may use donations from other people without charge. You also can direct your sample to go to a relative with an immediate need if the blood type matches. Anyone else needing to use stem cells from a public bank who has not been a donor must pay for it, sometimes tens of thousands of dollars. Will my family benefit from saving stem cells? Right now, situations in which stem cells would be helpful are quite rare. As mentioned earlier, stem-cell transplants are most commonly used for rare genetic conditions and for some types of cancer, including leukemia and lymphoma. And even with these present uses, many questions remain. In cancer treatment, for example, some researchers are concerned about the wisdom of transplanting back into the child the same cells that already showed a propensity to become malignant. Doctors also aren't sure if the number of cells taken at the time of would be enough to treat a full-grown 16-year-old. It is also not completely clear how active the cells would be after years of being stored. The treatment is so new and rare, we just don't have the data yet to resolve these important issues. What do the experts say? The [employer] encourages philanthropic blood banking in public suarez, but only for families with a current or potential need. Blood-bank proponents encourage any kind of banking, pointing out that research is getting closer and closer to many diverse, live-saving applications. How do I decide? Each family must weigh the pros and cons for themselves. Some families say that any cost is worth their peace of mind. Others say that in the face of uncertainty about the effectiveness of the treatment, they will use their resources elsewhere. Some choose the middle ground of donating publicly, knowing that their sample might benefit another family, if not themselves. For more information, ask your doctor or nurse, and be sure to check out our article on the technical aspects of cord-blood banking. Technical Aspects of Cord-Blood Banking If you are interested in storing your baby's umbilical-cord blood because of its possible use in emerging medical treatments, you must make arrangements with a blood bank before your child is born. The collection procedure is quite simple: After delivery of the baby, the umbilical cord is clamped and cut in the usual way. The blood that remains in the umbilical-cord vessels is then collected in sterile containers. The blood may be removed from the cord with a large needle or allowed to flow freely, depending on the company's collection system. The containers may look like large test tubes or like the plastic bags used in a blood bank. It does not cause the mother or the baby any pain to collect the blood, and no blood is taken that the baby needs at the moment. The nurse, prototype engineer manager, or physician will then label the samples, check them over with you, and package them for a special pickup arranged with a commercial carrier. When the blood arrives at the blood-bank facility, it is processed and the parents are notified. It is then kept in an advanced storage system for years. How do I know that my sample is safe? Power outages and bankruptcies potentially could threaten any organization, but so far none have been reported. It is to be hoped that the scientists in these suarez would arrange for safe transfer to another facility if the need arose. YOU MUST MAKE ARRANGEMENTS AHEAD OF TIME! Public cord-blood suarez--DONATION: [employer] [phone] [facility]'s Placental Blood Program, [facility] Umbilical Cord Blood Bank, Private cord-blood suarez--SAVING FOR YOUR OWN USE: [employer], (I think this is the least expensive) [employer] [phone] [employer], [phone]) [employer] [place] [facility], [phone], [phone] [place] [facility], Cord Blood Registry, [phone]) [employer], An Internet search may provide you with additional listings. Quin Zurita RN 01/03/2018 6:05 PM Signed #: 1, Date: [birth year]06, Sex: Male, Weight: 7 lb 6 oz (3.345 kg), GA: 38w0d, Delivery: VAGINAL , Apgar1: None, Apgar5: None, Living: Living, Comments: threated PTL x 2, treated with medication, lives with other fmily #: 2, Date: 08/29/14, Sex: None, Weight: None, GA: None, Delivery: None, Apgar1: None, Apgar5: None, Living: None, Comments: None #: 3, Date: 12/25/16, Sex: Female, Weight: 8 lb 4 oz (3.742 kg), GA: 40w2d, Delivery: Vaginal, Spontaneous Delivery, Apgar1: 8, Apgar5: 9, Living: Living, Comments: spontaneous labor, PROM,pitocin induction, EBL 400cc #: 4, Date: None, Sex: None, Weight: None, GA: None, Delivery: None, Apgar1: None, Apgar5: None, Living: None, Comments: None Referring Provider: SELF [200] Allergies As of Date: 01/03/2018 Noted Allergy Reaction PENICILLINS 02/06/2014 16 - Unknown Date Reviewed: 01/03/2018 Reviewed by: Quin Zurita RN - Fully Assessed Reason for Visit: Care [86] Cmt: Pre-New OB Primary Visit Diagnosis:Short interval between pregnancies affecting , antepartum [O09.899] Other Visit Diagnoses:Late care affecting , antepartum [O09.30] Prior labor, antepartum [O09.219] History of depression [Z86.59] Quit smoking [Z87.891] Family history of sickle cell anemia [Z83.2] Family history of congenital heart defect [Z82.79] Prescriptions as of 01/03/2018 Sig: VITAMIN,CALCIUM,MINE* Take 1 tablet by mouth. IRON ORAL Take by mouth. MULTIVITAMIN ORAL Take by mouth. Medication notes this encounter VITAMIN,CALCIUM,[id number] ACID TABLET >> Quin Zurita RN 01/03/2018 9:31 AM >> QUIN ZURITA RN [facility] Jan 03, 2018 9:31 AM Problem List As Of Date 01/03/2018 Noted Resolved Supervision of normal first [Z34.00] INVALID FOR*05/03/2016 Custody issue [Z65.3] INVALID FOR* More... History of depression [Z86.59] INVALID FOR* More... Stopped smoking [Z87.891] INVALID FOR* More... Family history of sickle cell anemia [Z83.2] INVALID FOR* More... Patient requested diagnostic testing [Z01.89] INVALID FOR* More... Chlamydial infection [A74.9] INVALID FOR* More... Trichomonas infection [A59.9] INVALID FOR* More... Abnormal glucose complicating [O99.81*INVALID FOR* More... Anemia in [O99.019] INVALID FOR* Short interval between pregnancies affecting pr*INVALID FOR* More... Late care affecting [O09.30] INVALID FOR* More... Prior labor, antepartum [O09.219] INVALID FOR* More... Quit smoking [Z87.891] INVALID FOR* More... Family history of congenital heart defect [Z82.*INVALID FOR* More... Other instructions from your clinician: SEQUENTIAL SCREENINGS The [facility] offers sequential screenings for women who are interested in screenings for chromosomal abnormalities and certain defects during a . The sequential screen combines ultrasound and blood tests to determine the risk of chromosomal abnormalities, including Down's Syndrome (Trisomy 21) and Trisomy 18, as well as open neural tube defects including spina bifida. Ultrasound examination is performed between 11 weeks and 13 weeks gestational age. Blood tests are drawn after the ultrasound and again later in the between 15 and 21 weeks gestational age. Please let your physician know if you are interested in this testing. It will require an appointment with our civil technician. This is not an ultrasound performed by a physician in our office during a routine visit. SIGNS AND SYMPTOMS OF LABOR 1. Contractions every 10 minutes or more often 2. Clear, pink, or brownish fluid (water) leaking from vagina 3. Feeling that baby is pushing down, pressure 4. Low, dull backache 5. Cramps that feel like a period 6. Cramps with or without diarrhea If you notice any of the above symptoms, contact our office at [phone] and ask to speak with a nurse. After hours, you can call doctors registry at [phone] OR call [facility] at [phone] and ask to have the doctor director of industrial relations paged. If you consider this an emergency, dial [phone] or go to your nearest emergency department. Cord-Blood Banking Up until recently, the umbilical cord--along with the blood that remained in it after a baby was born and the cord cut--was simply discarded by the hospital. Then, in the late , researchers discovered that cord blood possessed unusual properties that made it useful in the treatment of patients with some cancers and other illnesses. While the actual process of collecting cord blood is straightforward, many parents are not even aware that this option now exists, much less familiar with all the issues involved. The case for saving your baby's cord blood The blood running back and forth between your baby and the placenta is full of immature cells called stem cells. Unlike embryonic stem cells, which have the ability to develop into any type of body cell, cord-blood stem cells already are locked into a certain, vital function: making all the different components of the blood, such as platelets, white blood cells, and red blood cells-serving, in effect, like bone marrow. When transfused into a patient whose own blood cells have faulty genetic coding or have been destroyed by chemotherapy or other cancer treatments, the cord-blood cells can implant themselves in the bone marrow and generate legions of new, healthy cells. These days, cord-blood transplants most commonly are used in cancer patients when a donor can't be found for a bone-marrow transplant. The treatment is particularly effective in young patients- the [facility] reports a 70 percent success rate in children, but only 20 to 40 percent in adults. Researchers envision improving those odds and see many future applications as well, such as curing sickle cell disease and other blood-related genetic illnesses. So there is a possibility that your child, or someone else, may need these super-healthy and versatile cells one day. The drawbacks Aside from not knowing about this medical option, the main reason most people do not save their baby's stem cells is cost. In a private blood bank, the initial costs run from $275 to $1,500. Most also charge a yearly storage fee of $50 to $95. The advantage of using a private bank is that your sample is saved for only you to use. An alternative to private banking Public cord-blood suarez are an alternative. These cost no money to use, but your sample is not specifically saved for you. Another person with a more immediate need may use it. If the time should come that you need stem cells, yours may still be available, or you may use donations from other people without charge. You also can direct your sample to go to a relative with an immediate need if the blood type matches. Anyone else needing to use stem cells from a public bank who has not been a donor must pay for it, sometimes tens of thousands of dollars. Will my family benefit from saving stem cells? Right now, situations in which stem cells would be helpful are quite rare. As mentioned earlier, stem-cell transplants are most commonly used for rare genetic conditions and for some types of cancer, including leukemia and lymphoma. And even with these present uses, many questions remain. In cancer treatment, for example, some researchers are concerned about the wisdom of transplanting back into the child the same cells that already showed a propensity to become malignant. Doctors also aren't sure if the number of cells taken at the time of would be enough to treat a full-grown 16-year-old. It is also not completely clear how active the cells would be after years of being stored. The treatment is so new and rare, we just don't have the data yet to resolve these important issues. What do the experts say? The [employer] encourages philanthropic blood banking in public suaerz, but only for families with a current or potential need. Blood-bank proponents encourage any kind of banking, pointing out that research is getting closer and closer to many diverse, live-saving applications. How do I decide? Each family must weigh the pros and cons for themselves. Some families say that any cost is worth their peace of mind. Others say that in the face of uncertainty about the effectiveness of the treatment, they will use their resources elsewhere. Some choose the middle ground of donating publicly, knowing that their sample might benefit another family, if not themselves. For more information, ask your doctor or nurse, and be sure to check out our article on the technical aspects of cord-blood banking. Technical Aspects of Cord-Blood Banking If you are interested in storing your baby's umbilical- cord blood because of its possible use in emerging medical treatments, you must make arrangements with a blood bank before your child is born. The collection procedure is quite simple: After delivery of the baby, the umbilical cord is clamped and cut in the usual way. The blood that remains in the umbilical-cord vessels is then collected in sterile containers. The blood may be removed from the cord with a large needle or allowed to flow freely, depending on the company's collection system. The containers may look like large test tubes or like the plastic bags used in a blood bank. It does not cause the mother or the baby any pain to collect the blood, and no blood is taken that the baby needs at the moment. The nurse, prototype engineer manager, or physician will then label the samples, check them over with you, and package them for a special pickup arranged with a commercial carrier. When the blood arrives at the blood- bank facility, it is processed and the parents are notified. It is then kept in an advanced storage system for years. How do I know that my sample is safe? Power outages and bankruptcies potentially could threaten any organization, but so far none have been reported. It is to be hoped that the scientists in these suarez would arrange for safe transfer to another facility if the need arose. YOU MUST MAKE ARRANGEMENTS AHEAD OF TIME! Public cord-blood suarez--DONATION: [employer] [phone] [facility]'s Placental Blood Program, [facility] Umbilical Cord Blood Bank, Private cord-blood suarez--SAVING FOR YOUR OWN USE: [employer], (I think this is the least expensive) [employer] [phone] [employer], (230) [employer] [place] [facility], [phone]) 700-CORD Cells, [phone]-BABY [place] [facility], Cord Blood Registry, (640) [employer] [place], An Internet search may provide you with additional listings. Disposition: Return in 4 days (on 01/07/2018) for New OB with Juanis Rowland. Follow-up and Disposition History Recorded Letter Text Dear Mitchell Lacey: How to activate your [facility] [employer] Account 1. Visit the [employer] Signup page at [email or web address] 2. Identify yourself using your one-time use activation code: [email or web address] 3. Follow the on-screen prompts to choose your own secure username and password The following information will be necessary to access your account for the first time: Information needed for sign-up: Your custom activation code used one-time only for the initial account set-up. Your date of The last 4 digits of your social security number What to do next: Fill in the requested information on the Identify Yourself Form at [email or web address] , click Next. Create your login and password, choose a Ar[employer]Pay ID and password that will be easy for you to use, but impossible for anyone else to guess. Pick a security question that will assist you in the event you forget your password the next time you log-on. If you have difficulty activating your account, please call our [employer] helpline at [phone] or toll free at . We hope you enjoy using ArgoPay! Kindest Regards, [facility] [employer] Team Encounter Status:Closed by QUIN ZURITA RN [facility]03[facility] 01/02/2018 Status: COMPLETED Source: [place] 12:00 AM [facility] REPOSITORY Telephone (WOOB) MITCHELL LACEY ([id number]) 1985 F Date Time Provider Department 01/02/18 JUANIS ROWLAND (SARI) WOOB During your visit today, we recorded the following information about you: Quin Zurita RN 01/02/2018 5:29 PM Signed Patient has PNOB appointment tomorrow. Was seen at [facility] 12/24/2017 for abdominal pain. Ultrasound was done and she uis 19w5d by dates. Patient has NOB appointment with Juanis 01/07. Do you want to order anatomy ultrasound prior to her appointment with you. Please advise and I will inform her at PNOB appt tomorrow Juanis Rowland APRN.CNM 01/02/2018 5:34 PM Signed Yes I would like to schedule an anatomy scan for this patient. This can be done on the day of my NOB if available. NENO George RN 01/03/2018 9:56 AM Addendum Patient scheduled. Please sign attached orderJuanis Allergies As of Date: 01/02/2018 Noted Allergy Reaction PENICILLINS 02/06/2014 16 - Unknown Date Reviewed: 12/21/2016 Reviewed by: Zoe Presley Ma - Fully Assessed Reason for Visit: late care [Other] Primary Visit Diagnosis:Late care [O09.30] Order(s):OBSTETRIC ULTRASOUND WHI [6541786] Order #: [id number]: 1 Prescriptions as of 01/02/2018 Sig: IRON ORAL Take by mouth. MULTIVITAMIN ORAL Take by mouth. VITAMIN,CALCIUM,MINE* Take 1 tablet by mouth. Problem List As Of Date 01/02/2018 Noted Resolved Supervision of normal first [Z34.00] INVALID FOR*05/03/2016 Custody issue [Z65.3] INVALID FOR* More... History of depression [Z86.59] INVALID FOR* More... Stopped smoking [Z87.891] INVALID FOR* More... Family history of sickle cell disease [Z83.2] INVALID FOR* More... Patient requested diagnostic testing [Z01.89] INVALID FOR* More... Chlamydial infection [A74.9] INVALID FOR* More... Trichomonas infection [A59.9] INVALID FOR* More... Abnormal glucose complicating [O99.81*INVALID FOR* More... Anemia in [O99.019] INVALID FOR* Encounter Status:Closed by JUANIS ROWLAND CNM on 01/03/18 EMERGENCY DEPARTMENT Observed: 12/24/2017 Status: F Source: [place] SUMMARY 5:06 PM [facility] REPOSITORY [facility] Medical Records Department [address] [place] [address] Emergency Department Summary 12/24/17 1551 MR#: [id number] Acct: [id number] Name: MITCHELL LACEY Rep #: [id number] : 1985 32 From: Hua Chadwick DO PCP: Jes Wood MD Status: REG ER ADDENDUM by Sabrina Best MD on 12/24/17 at 1706 Patient was checked out to me to check ultrasound results. Pelvic ultrasound shows live single intrauterine at 19 weeks, 5 days. CRIS is May 15, 2018. Patient states her main concern was to make sure that this was not an ectopic . She will follow-up with Dr. Fournier her END MATCHER. She is advised return to the ED for worsening complaints. Date Sabrina Best MD cc: Jes Wood MD * Signed - ER Visit Summary Date of Service: 12/24/17 Chief Complaint: [Abdominal pain] History of Present Illness: The patient is a 32 F [presents the emergency department complaint of abdominal pain 3 days. Patient describes the pain is left lower quadrant/pelvis. Patient states that she took home test a couple weeks ago and it was positive. She denies any vaginal bleeding. Patient has history of prior tubal and is concerned. Patient denies any significant urinary symptoms other than some mild frequency. Patient has had some mild nausea. Patient has had some mild discomfort in her back.] Physical Examination: [HEENT-PERRLA, EOMI. Cranial nerves II through XII grossly intact. TMs clear. Mucous membranes moist. No adenopathy. Cardiovascular-regular rate and rhythm without murmur or ectopy Lungs-clear to auscultation, chest wall stable without crepitus or subcu emphysema Abdomen-normoactive bowel sounds, soft. Patient does have some tenderness over left lower quadrant down into the pelvis. No masses palpated. There is no rebound, rigidity, or perineal signs. Extremities-intact 4, normal range of motion, normal pulses, atraumatic] Test Results: [CBC with differential was normal. Urinalysis was normal. Quant was 16,919. Pelvic ultrasound ordered and pending] Emergency Department Course and Treatment: [Care of patient turned over to evening physician awaiting ultrasound results] Treatment Plan: [Pending ultrasound results] Disposition: [Pending ultrasound results] Impression: [Abdominal/pelvic pain] This note was generated with Cardiostrongation software. It may contain incorrect words, spelling, and punctuation that were not noted in review of the chart prior to signing ED Disposition - Plan for ED Patient: Chief Complaint: Abd Pain Referrals: Jes Wood MD [Primary Care Provider] - What to do if you have Problems For any increased pain, shortness of breath, bleeding, nausea or vomiting, chest pain, or any unexpected problems, contact your Primary Care Provider. Call ecomom Registry ([phone]) or report to the closest Emergency Room. Call 911 if necessary. 12/24/17 1558 <Electronically signed by Hua Chadwick DO> Date Hua Chadwick DO Cosigner Signature (If Indicated): Date CC: Jes Wood MD DISCHARGE INSTRUCTION Observed: 12/24/2017 Status: F Source: [place] 5:06 PM [facility] REPOSITORY [facility] Medical Records Department [address] [place] [id number] Discharge Instruction 12/24/17 1706 MR#: [id number] Acct: [id number] Name: MITCHELL LACEY Rep #: [id number] : 1985 32 From: Sabrina Best MD PCP: Jes Wood MD Status: REG ER ED Disposition - Plan for ED Patient: Chief Complaint: Abd Pain Instructions: Care for a Healthy Baby Referrals: Jes Wood MD [Primary Care Provider] - Supriya Fournier MD [STAFF PHYSICIAN] - What to do if you have Problems For any increased pain, shortness of breath, bleeding, nausea or vomiting, chest pain, or any unexpected problems, contact your Primary Care Provider. Call Doctors Registry ([phone]) or report to the closest Emergency Room. Call 911 if necessary. 12/24/17 1706 <Electronically signed by Sabrina Best MD> Date Sabrina Best MD Cosigner Signature (If Indicated): Date CC: Jes Wood MD OB LIMITED WITH Observed: 12/24/2017 Status: F Source: [place] BIOM[employer] 3:15 PM [facility] REPOSITORY [facility] Imaging Services [address] [place] [address] [place] [address] OB Limited With Biometrics MR#: [id number] Acct: [id number] Name: MITCHELL LACEY Rep #: [id number] : 1985 F 32 From: Shay Mayer DO PCP: Jes Wood MD Status: REG ER Study: OB Limited With Biometrics Date of Exam: 12/24/17 Exam# [id number] Ordering Dr: Hua Chadwick DO STUDY: SECOND AND THIRD TRIMESTER OBSTETRICAL ULTRASOUND - LIMITED REASON FOR EXAM: Female, 32 years old. Left pelvic pain. Beta hCG of 16,919. LMP: July 2017. PRIOR ULTRASOUND: None. TECHNIQUE: Transabdominal ultrasound evaluation was performed. FINDINGS: There is a single intrauterine fetus. The fetus is in a cephalic presentation. There is demonstrated cardiac activity with a heart rate of 163 bpm. There is a normal amniotic fluid volume. The placenta is left lateral in location and is not low lying. There are Grade 1 placental changes. The cervix measures 3.81 cm cm in length. BIOMETRY: BPD: 4.62 cm: 20 weeks, 0 days HC: 16.65 cm: 19 weeks, 3 days AC: 14.12 cm: 19 weeks, 4 days FL: 3.12 cm: 19 weeks, 5 days age by current US: 19 weeks, 5 days. CRIS by current US: May 15, 2018. Estimated weight: 300 grams, +/- 44 grams. US/OB Limited With Biometrics IMPRESSION: 1. Live single intrauterine at 19 weeks, 5 days. CRIS is May 15, 2018. 2. EFW of 300 g. 3. Adequate amniotic fluid. 4. Left lateral grade 1 placenta. 5. Vertex presentation. Electronically Signed: Shay Mayer DO at 16:19 EDT Tel [phone], Service support , CC: Jes Wood MD; Hua Chadwick DO Change Lead: Signed CBC W/DIFF, AUTOMATED Collected: 12/24/2017 Status: F Source: [place] 2:07 PM [facility] REPOSITORY TYPE CODE TESTS RESULT OUT OF RANGE REFERENCE UNITS LAB L100.1000 4.4-11.0 K/mm3 Normal WBC 9.6 LAB L100.1200 4.2-5.4 M/mm3 Low RBC 3.67 LAB L100.1300 12.0-15.0 g/dl Low HGB 10.5 LAB L100.1400 37-47 % Low HCT 31.9 LAB L100.1500 81-99 fL Normal MCV 86.9 LAB L100.1600 27.0-32.0 pg Normal MCH 28.6 LAB L100.1700 32-36 g/gl Normal MCHC 32.9 LAB L100.1810 11.6-14.6 % Normal RDW CV 13.2 LAB L100.1820 35.1-43.9 fl Normal RDW SD 40.6 LAB L100.1900 150-450 K/mm3 Normal PLT 217 LAB L100.2000 6.2-12.0 fl Normal MPV 10.1 LAB L100.2100 47-70 % High NEUT% 78.9 LAB L100.2200 19-41 % Low LY% 15.6 LAB L100.2300 0-10 % Normal MONO% 4.5 LAB L100.2400 0-5 % Normal EO% 0.7 LAB L100.2500 0-1 % Normal BASO% 0.2 LAB L100.2550 0.0-0.9 % Normal IM GRAN % 0.100 Result Comment: IG% - Immature Granulocytes (promyelocytes, myelocytes and metamyelocytes) > 1% indicates that a LEFT SHIFT is Present. LAB L100.2620 2.0-7.7 X10 3/uL Normal Absolute Neut 7.6 LAB L100.2720 0.83-4.51 X10 3/ul Normal Absolute Lymph 1.50 Performed By: #### L100.0100 #### [facility] [address] [place], [place], [address] URINALYSIS, COMPLETE Collected: 12/24/2017 Status: F Source: [place] 2:07 PM [facility] REPOSITORY Order Comment: Order Date: 12/24/17 How was Urine Obtained? CLEAN CATCH TYPE CODE TESTS RESULT OUT OF RANGE REFERENCE UNITS LAB L400.3000 Yellow COLOR Normal Yellow LAB L400.3050 Clear Normal CLARITY Sl. Cloudy LAB L400.3200 Normal mg/dl Normal GLUCOSE, UR Normal LAB L400.3300 Negative mg/dL Normal BILIRUBIN URINE Negative LAB L400.3400 Negative mg/dl Normal KETONE UR Negative LAB L400.3465 1.002-1.030 Normal SP.GR. DIPSTX 1.015 LAB L400.3550 5.0 - 8.0 pH UR Normal 8.0 LAB L400.3600 Negative mg/dl PROT Normal DIPSTX Negative LAB L400.3700 Normal mg/dl Normal UROBILI Normal LAB L400.3750 Negative Normal NITRITE UR Negative LAB L400.3780 Negative /ul Normal OCCULT BLOOD-UR Negative LAB L400.3800 Negative /ul LEUK Normal ESTERASE Negative LAB L400.4050 0-5 /hpf WBC 0 Normal SEEN LAB L400.4100 0-5 /hpf 0 Normal RBC-UA SEEN LAB L400.4150 5-10 /hpf SQUAM Normal EPI 0-5 SEEN LAB L400.4300 None Seen /hpf 1+ Normal BACTERIA LAB L400.4350 <or=2+ /hpf 0 Normal MUCUS, URINE SEEN Performed By: #### L400.0001 #### [facility] [address] [place], [address] ABO RH BLOOD TYPE, Collected: 12/24/2017 Status: F Source: [place] PATIENT 2:07 PM [facility] REPOSITORY TYPE CODE TESTS RESULT OUT OF RANGE REFERENCE UNITS LAB B10.0800 AB Normal BLOOD POSITIVE TYPE GEL Performed By: #### B10.0010 #### [facility] [address] [place], [address] HCG TITER QUANT., Collected: 12/24/2017 Status: F Source: [place] SERUM 2:07 PM [facility] REPOSITORY TYPE CODE TESTS RESULT OUT OF RANGE REFERENCE UNITS LAB L700.8000 <9 non-preg mIU/mL High HCG 65641 QUANT. Performed By: #### L700.8000 #### [facility] [address] [place], [address] ALLERGIES ALLERGIES DATE TYPE / CODE NAME / CODE REACTION SEVERITY SOURCE 12/24/2017 Drug Penicillins/[id number] Rash Unknown Roy Allergy/416 0476(RXNORM) Community 783181([facility] ED CT) Repository 02/06/2014 Drug PENICILLINS UNKNOWN High [facility] Class/90259 [place] 1003([facility] Repository CT) ENCOUNTERS ENCOUNTERS ADMIT/DISCHARGE ACCOUNT ADMITTING ENCOUNTER LOCATION SOURCE NUMBER CLASS 05/30/2018/05/30/19 [id number] Ambulatory [address] [place] Repository 05/30/2018/05/31/19 [id number] Ambulatory [address] [place] Repository 05/08/2018/05/10/20 [id number] Kwadwo, Inpatient [facility] 18 Supriya Encounter [facility] ing:WPRoom: Repository [id number]: 1 05/02/2018/05/03/20 [id number] Ambulatory [address] [place] Repository 04/10/2018/04/11/20 [id number] Ambulatory [address] Repository 04/02/2018/04/02/20 [id number] Ambulatory [address] [place] Repository 04/02/2018/04/03/20 [id number] Ambulatory [facility] [place] Repository 04/01/2018/04/02/20 [id number] Ambulatory [facility] [place] Repository 03/28/2018/03/29/20 [id number] Ambulatory [facility] [place] Repository 03/26/2018/03/27/20 [id number] Ambulatory [facility] [place] Repository 03/21/2018/03/22/20 [id number] Ambulatory [facility] [place] Repository 03/20/2018/03/20/20 [id number] Ambulatory [facility] [place] Repository 03/04/2018/03/04/20 [id number] Ambulatory [facility] [place] Repository 03/04/2018/03/05/20 [id number] Ambulatory [facility] [place] Repository 02/18/2018/02/20/20 [id number] Ambulatory [facility] [place] Repository 02/18/2018/02/19/20 [id number] Ambulatory [facility] [place] Repository 02/05/2018/02/06/20 [id number] Ambulatory [facility] [place] Repository 02/05/2018/02/07/20 [id number] Ambulatory [facility] [place] Repository 01/07/2018/01/09/20 [id number] Ambulatory [facility] [place] Repository 01/07/2018/01/09/20 [id number] Ambulatory [facility] [place] Repository 01/03/2018/01/04/20 [id number] Ambulatory [facility] [place] Repository 12/24/2017/12/25/19 [id number] Emergency [place] 18 [facility] ing:ED Repository PAYERS PAYERS ENCOUNTER GUARANTOR PAYER SUBSCRIBER SOURCE 05/08/2018 MITCHELL Prieto Primary MITCHELL VARGASCHISON350 [facility] [place]: [id number] [id number] Repository [address]: [address]) Date:2018-05-08 O [phone] () [address]ATTN: [place] [address]KQ: 05/08/2018 Secondary NOT GIVENUNK [place] Insurance:SELF PAY [facility] Number: Effective Repository Date:2018-05-08 12/24/2017 MITCHELL Prieto Primary NOT GIVENUNK Roy [id number] Insurance:SELF PAY [place], [place] Number: Effective Repository [phone]) Date:2017-12-24 [phone] ()
== END 2018-05-10 13:30 | disposition home or self-care (01) | DRG 560 ==
PROVIDERS: Advanced Practice Midwife; Admitting Provider Obstetrics & Gynecology; Family Provider Family Medicine; PCP Family Medicine; Referring Provider Obstetrics & Gynecology; Visit Provider Obstetrics & Gynecology
DX: O42.02 Full-term premature rupture of membranes, onset of labor within 24 hours of rupture (principal); O36.1930 Maternal care for other isoimmunization, third trimester, not applicable or unspecified; O43.123 Velamentous insertion of umbilical cord, third trimester; O43.193 Other malformation of placenta, third trimester; O99.02 Anemia complicating childbirth; D50.8 Other iron deficiency anemias; O99.334 Smoking (tobacco) complicating childbirth; F17.200 Nicotine dependence, unspecified, uncomplicated; Z3A.39 39 weeks gestation of pregnancy; Z37.0 Single live birth
CPT/HCPCS: 59050; 85027; 86850; 86870; 86900; 86901; 86902; 86920; 86922; 99218; J7120; G0378

== ENCOUNTER 2022-03-03 14:07 | Emergency (ER) | payer MEDICAID, SELFPAY ==
[2022-03-03 14:08] VITALS: BP 130/85; PULSE 80; RESP 16; TEMP 36.1; O2SAT 100; BMI 19.7
[2022-03-03 15:42] LABS: Red Blood Cells-Urine 0 SEEN /hpf (0-5); White Blood Cells 0 SEEN /hpf (0-5)
[2022-03-03 15:49] LABS: Color, Urine Yellow (Yellow); Glucose, Dipstick Normal (Normal); Ketone-Dipstick Negative (Negative); Leukocyte Esterase-Dipstick Negative /ul (Negative); Nitrite-Dipstick Negative (Negative); Occult Blood-Urine Negative /ul (Negative); Protein-Dipstick Negative (Negative); Urine Bilirubin Dipstick Negative (Negative); Urine Clarity Clear (Clear); Urine Urobilinogen Normal (Normal); Urine pH 6.5 (5.0 - 8.0)
[2022-03-03 15:56] LABS: Bacteria 1+ /hpf (None Seen); Mucous, Urine 1+ /hpf (<or=2+); Squamous Epithelial Cells - UA 0-5 SEEN /hpf (5-10)
--- NOTE | 2022-03-03 16:01 | US_ITS ---
STUDY: FIRST TRIMESTER OBSTETRICAL ULTRASOUND EXAMINATION FROM 1619 HOURS ON 03/03/2022 REASON FOR EXAM: 37-year-old female with pelvic cramping 30 minutes duration with lower pelvic pressure.. LMP: Not given. TECHNIQUE: Transabdominal pelvic ultrasound examination was performed per protocol. TECHNICAL QUALITY: Adequate. PRIOR ULTRASOUND: None. FINDINGS: Single intrauterine fetus is noted with a crown-rump length measurement of 6.76 cm, compatible with a gestational age of 13 weeks 1 day. heart rate of 155 bpm. The fetus is in transverse position with his head towards maternal right. There is a normal amount of amniotic fluid for age. There is an anterior grade 1 placenta without previa or abruption. Estimated date of delivery would be 09/13/2022. The uterus measures 11.16 x 9.6 in AP diameter by 9.8 cm in transverse diameter. There are no fibroids. The cervix is closed. The right ovary measures 3.6 cm x 3.1 mm x 3.0 cm with a 2.5 cm diameter simple cyst. The left ovary measures 2.4 cm x 1.5 cm x 1.4 cm. There is no evidence of other ovarian cystic or solid mass lesions or ovarian torsion. There is no evidence of free fluid in the cul-de-sac or adnexal masses. US/Init OB < 14Wks US IMPRESSION: 1. Normal-appearing lie, single intrauterine with a heart rate of 155 bpm and an estimated age of 13 weeks and 1 day. 2. Fetus is currently in transverse position with his head towards maternal right. 3. Normal amount of amniotic fluid for age. 4. CRIS is 09/13/2022. 5. Mildly enlarged uterus compatible with an early . 6. Presence of a 2.5 cm simple right ovarian cyst. Otherwise, no evidence of other ovarian cystic or solid mass lesions or torsion. 7. No free fluid in the cul-de-sac or adnexal masses. Electronically Signed: Joseph Haile MD at 17:19 EDT ,
--- NOTE | 2022-03-03 16:03 | EDS_ITS ---
HPI <ZOILA Huddleston - Last Filed: 03/03/22 17:45> History of Present Illness Chief Complaint: Abd Pain Narrative Narrative: 37-year-old female with history of hypothyroidism, she is currently at 13 weeks, she is a 5 para 3 with 1 ectopic . Patient states today roughly 2 hours ago, she got up to use the restroom, felt a sudden urge to urinate as well as cramping in her lower abdomen. Patient states that the cramping was severe in her lower abdomen which she has not had and she is here for evaluation. She denies any fevers, chills denies any vaginal discharge or vaginal bleeding. Patient states the cramping did ease up some however she is concerned. PFS <ZOILA Huddleston - Last Filed: 03/03/22 17:45> [facility] Medical History (Updated 03/03/22 @ 17:44 by ZOILA Huddleston) History of drug use Rubella non-immune status, antepartum Supervision of high-risk Tobacco use complicating Home Medications multivitamin (Multiple Vitamins tablet) 1 ea PO DAILY 08/11/16 [History Last Taken 12/24/16] ibuprofen 600 mg tablet 600 mg PO Q6H PRN PRN Mild Pain (1-08/04) 05/08/18 [Rx Last Taken Unknown] sennosides 8.6 mg-docusate sodium 50 mg tablet (Stool Softener-Stimulant Laxative) 1 - 2 tab PO DAILY PRN PRN Constipation 05/08/18 [Rx Last Taken Unknown] Allergy/AdvReac Type Severity Reaction Status Date / Time Penicillins Allergy Rash Verified 03/03/22 14:08 Social History Smoking Status: Former smoker ROS <ZOILA Huddleston - Last Filed: 03/03/22 17:45> ROS ED ROS Narrative Constitutional: Negative for fever, chills, weight loss, weakness Eyes: Negative for vision loss, vision change, double vision ENT: Negative for any sore throat, ear pain, congestion Cardiovascular: Negative for any chest pain, tightness, palpitations Respiratory: Negative for any cough, sputum production, hemoptysis, dyspnea, dyspnea on exertion, orthopnea Gastrointestinal: Negative for any nausea, vomiting, diarrhea, constipation, blood in stool, blood in vomit. Positive for lower abdominal pain, cramping : Negative for any urinary frequency, dysuria, retention, blood in urine Muscle skeletal: Negative for any muscle joint pain, stiffness, myalgias, arthralgias, neck pain, back pain Neurological: Negative for any headache, syncope, numbness or tingling, dizziness Skin: Negative for any rashes, lumps, itching, abrasions, lacerations Psychiatric: Negative for any depression, anxiety, stress, suicidal ideation, homicidal ideation Hematologic: Negative for any easy bruising, excessive bruising, easy bleeding Allergies: Negative for any eczema, hives, rash EXAM <ZOILA Huddleston - Last Filed: 03/03/22 17:45> Physical Exam Narrative Exam Narrative: Vital signs reviewed. HEET: Head normocephalic atraumatic, TMs clear bilaterally. Posterior pharynx is clear, moist mucous membranes. Nares clear bilaterally. Neck: Supple with no lymphadenopathy or tenderness. No signs of meningismus, negative jolt sign. Cardiac: Regular rate and rhythm no murmurs gallops or rubs, equal peripheral pulses bilaterally. Respiratory: Lungs clear to auscultation bilaterally. No chest tenderness. Abdomen: Soft, nondistended. No abdominal bruit or pulsatile masses. No hepatosplenomegaly. Positive for suprapubic pain, negative for any peritoneal signs. Extremities: No peripheral edema, no signs of gross trauma or deformity. Active full range of motion of all extremities. Neuro: Cranial nerves II through XII intact, no focal neurological deficits. Skin: Clean dry and intact with no rash, purpura, petechiae, vesicles or pustules. Backs/flank: No CVA tenderness, no midline spinal tenderness, no deformity. Psych: Normal mood and affect. No SI, HI or acute psychosis. Const Vital Signs: 03/03/22 14:08 Temperature 96.9 F L Temperature Source Temporal Pulse Rate 80 Respiratory Rate 16 Blood Pressure 130/85 H Blood Pressure Mean 100 Pulse Ox 100 Oxygen Delivery Method Room Air Positive well nourished and well developed General Appearance ED: well developed <Dr. Jose Mittal MD - Last Filed: 03/03/22 16:58> Physical Exam Const Vital Signs: 03/03/22 14:08 Temperature 96.9 F L Temperature Source Temporal Pulse Rate 80 Respiratory Rate 16 Blood Pressure 130/85 H Blood Pressure Mean 100 Pulse Ox 100 Oxygen Delivery Method Room Air [facility] <Zac HernandezZOILA - Last Filed: 03/03/22 17:45> [facility] Lab Data Labs: Laboratory Results - last 24 hr 03/03/22 15:35 Urine Color Yellow Urine Clarity Clear Urine pH 6.5 Ur Specific [place] 1.020 Urine Protein Negative Urine Glucose (UA) Normal Urine Ketones Negative Urine Occult Blood Negative Urine Nitrite Negative Urine Bilirubin Negative Urine Urobilinogen Normal Ur Leukocyte Esterase Negative Urine RBC 0 SEEN Urine WBC 0 SEEN Ur Squamous Epith Cells 0-5 SEEN Urine Bacteria 1+ Urine Mucus 1+ Radiography Diagnostic Testing: Clinical Impression(s) from Imaging Studies Obstetrics Ultrasound 03/03/22 16:01 IMPRESSION: 1. Normal-appearing lie, single intrauterine with a heart rate of 155 bpm and an estimated age of 13 weeks and 1 day. 2. Fetus is currently in transverse position with his head towards maternal right. 3. Normal amount of amniotic fluid for age. 4. CRIS is 09/13/2022. 5. Mildly enlarged uterus compatible with an early . 6. Presence of a 2.5 cm simple right ovarian cyst. Otherwise, no evidence of other ovarian cystic or solid mass lesions or torsion. 7. No free fluid in the cul-de-sac or adnexal masses. Electronically Signed: Joseph Haile MD at 17:19 EDT , Treatment and Re-Evaluation Narrative: Patient appears well, patient appears nontoxic, vital signs are stable. Patient's physical examination was unremarkable for any acute process. Patient presents the emergency department lower abdominal cramping, patient is concerned because she is 13 weeks . Patient's urinalysis was negative for any inf ection. Patient did receive a transvaginal ultrasound, this showed normal- appearing lie, single intrauterine with a heart rate of 155 and an estimated age of 13 weeks and 1 day. There is no evidence of solid mass lesions or torsion. No free fluid in the cul-de-sac or adnexal masses. At this time on reevaluation, the patient was feeling much better, patient was happy to hear that everything was normal. Patient will continue to follow-up closely with her COMMUNICATIONS PROJECT MANAGER. Patient is happy with the plan of care and is stable for discharge. At this time there is no indication of any demise, acute process <Dr. Jose Mittal MD - Last Filed: 03/03/22 16:58> [facility] Narrative Medical decision making narrative: I have personally performed a face to face assessment of the patient and have reviewed the FRANCISCA Note. I performed a substantive portion of the visit including all aspects of the following. My rivera findings include: History is [37-year-old female G5, P3 Ab1 without being ectopic. Currently about 13 weeks . Evaluating her with our physician insurance claims assistant. She has care at [facility] with a engraver lettering. Basically today had some cramping. No bleeding.] Exam is [the [place] female no acute distress vital signs stable afebrile. HEENT exam normal. Lungs clear. Heart regular rhythm rate about 80 no murmur. Abdomen soft, nontender, nondistended normal bowel sounds no peritoneal signs. No uterine tenderness. Back nontender. Moving all 4 extremities. Nontender no edema. Neurologic exam normal.] Medical Decision Making [37-year-old . Exam benign. UA normal. Transvaginal ultrasound done awaiting results.] Other additions or changes: [None] Lab Data Attestation: I reviewed the patient's lab results. Lab results narrative: Urinalysis normal. Labs: Laboratory Results - last 24 hr 03/03/22 15:35 Urine Color Yellow Urine Clarity Clear Urine pH 6.5 Ur Specific [place] 1.020 Urine Protein Negative Urine Glucose (UA) Normal Urine Ketones Negative Urine Occult Blood Negative Urine Nitrite Negative Urine Bilirubin Negative Urine Urobilinogen Normal Ur Leukocyte Esterase Negative Urine RBC 0 SEEN Urine WBC 0 SEEN Ur Squamous Epith Cells 0-5 SEEN Urine Bacteria 1+ Urine Mucus 1+ Radiography Diagnostic Testing: Clinical Impression(s) from Imaging Studies Obstetrics Ultrasound 03/03/22 16:01 IMPRESSION: 1. Normal-appearing lie, single intrauterine with a heart rate of 155 bpm and an estimated age of 13 weeks and 1 day. 2. Fetus is currently in transverse position with his head towards maternal right. 3. Normal amount of amniotic fluid for age. 4. CRIS is 09/13/2022. 5. Mildly enlarged uterus compatible with an early . 6. Presence of a 2.5 cm simple right ovarian cyst. Otherwise, no evidence of other ovarian cystic or solid mass lesions or torsion. 7. No free fluid in the cul-de-sac or adnexal masses. Electronically Signed: Joseph Haile MD at 17:19 EDT , Discharge Plan Triage Chief Complaint: Abd Pain ED Midlevel Provider: Zac Hernandez ED Provider: Jose Mittal Dx/Rx/DC Orders Clinical Impression: Abdominal cramping, Instructions: 2nd Trimester [employer], ED Abdominal Pain Unkn Cause Fem Prescriptions: No Action multivitamin [Multiple Vitamins] 1 EACH tablet 1 ea PO DAILY sennosides-docusate sodium [Stool Softener-Stimulant Laxat] 1 TABLET tablet 1 - 2 tab PO DAILY PRN PRN (Reason: Constipation ) 0RF ibuprofen 600 MG tablet 600 mg PO Q6H PRN PRN (Reason: Mild Pain (-08/04)) 0RF Primary Care Provider: Carmen Cyr WASTE RECYCLER Referrals: Jes Wodo MD [Med Staff - [facility]] - Activity Restrictions/Additional Instructions: Please follow-up with your COMMUNICATIONS PROJECT MANAGER Disposition Disposition: Home, Self Care
== END 2022-03-03 17:55 | disposition home or self-care (01) ==
PROVIDERS: Emergency Provider Emergency Medicine; PCP Nurse Practitioner Primary Care; Visit Provider Emergency Medicine
DX: O26.891 Other specified pregnancy related conditions, first trimester (principal); R10.9 Unspecified abdominal pain; Z87.891 Personal history of nicotine dependence; Z3A.13 13 weeks gestation of pregnancy
CPT/HCPCS: 76801; 81001; 99282

== ENCOUNTER 2022-12-08 08:53 | Emergency (ER) | payer MEDICAID, SELFPAY ==
[2022-12-08 08:55] VITALS: BP 110/81; PULSE 84; RESP 16; TEMP 36.6; O2SAT 99; BMI 22.6
--- NOTE | 2022-12-08 09:04 | ED.VIS.FEGU ---
HPI HPI - Female History of Present Illness Chief Complaint: Vag Bleeding [facility] Medical History (Updated 12/08/22 @ 10:[address] Ruddy Fink, DO) History of drug use Rubella non-immune status, antepartum Supervision of high-risk Tobacco use complicating Home Medications multivitamin (Multiple Vitamins tablet) 1 ea PO DAILY 08/11/16 [History Last Taken 12/24/16] ibuprofen 600 mg tablet 600 mg PO Q6H PRN PRN Mild Pain (1-3/10) 05/08/18 [Rx Last Taken Unknown] sennosides 8.6 mg-docusate sodium 50 mg tablet (Stool Softener-Stimulant Laxative) 1 - 2 tab PO DAILY PRN PRN Constipation 05/08/18 [Rx Last Taken Unknown] Allergy/AdvReac Type Severity Reaction Status Date / Time Penicillins Allergy Rash Verified 12/08/22 08:59 Social History Smoking Status: Former smoker EXAM Physical Exam Const Vital Signs: 12/08/22 08:55 Temperature 97.8 F Temperature Source Temporal Pulse Rate 84 Respiratory Rate 16 Blood Pressure 110/81 H Blood Pressure Mean 90 Pulse Ox 99 Oxygen Delivery Method Room Air MDM MDM MDM Narrative Medical decision making narrative: HISTORY OF PRESENT ILLNESS: 37-year-old female here with vaginal bleeding. Notes 2 days of heavy vaginal bleeding. Started slow but recently has been going through 1 pad an hour. It is concerning because she has had history of blood transfusions after . She is also concerned because she has a rare blood type. She denies being Rh-. REVIEW OF SYSTEMS: Pertinent positives: Vaginal bleeding, fatigue Pertinent negatives: Syncope, chest pain, shortness of breath PHYSICAL EXAM: Nursing triage notes reviewed, Vital signs reviewed Constitutional: please see mdm HENT: MMM Eyes: Pupils equal round and reactive to light, Extraocular muscles intact Neck: No stridor, no JVD, full neck ROM Lungs: Clear to auscultation, No wheezing or rales. No increased work of breathing, no conversational dyspnea, no accessory muscle use, no nasal flaring. No respiratory distress noted Heart: Regular rate and rhythm, No murmurs, No rubs and No gallops, 2+ distal pulses (radial, femoral, posterior tibial) in all extremities Abdomen: Soft, there is no tenderness, rigidity, rebound or guarding, no obvious peritoneal signs, no palpable pulsatile abdominal masses, no auscultated abdominal bruit : No CVAT, vaginal exam deferred by patient Extremities: No edema Neuro: No focal neurological deficits, cranial nerves II through XII intact, 5/5 strength in all extremities. Intact sensation to light touch in all extremities, 2+ reflexes bilateral patella tendons. Normal gait. No ataxia. Skin: No rash or lesions noted MEDICAL DECISION MAKING: Chief Complaint: Vaginal bleeding External records reviewed: Last ED visit in February 2022, Baseline hemoglobin between 8.9 and 10.4 ALL IMAGES (IF OBTAINED) HAVE BEEN PERSONALLY REVIEWED AND INTERPRETED BY MYSELF. CBC without leukocytosis, severe anemia, no thrombocytopenia. BMP without evidence of significant electrolyte abnormalities, no anion gap, no acute kidney injury. Urine test is negative MDM Narrative: The patient was initially hemodynamically stable, afebrile, nontoxic-appearing. Abdominal exam was benign. I considered the following differential diagnosis: Vaginal bleeding, anemia, , ectopic , missed I obtained labs including type and screen, give fluids. Labs were remarkable for no evidence of significant anemia, electrolyte abnormality, . No signs of significant anemia, miscarriage or ectopic . Patient is likely suffering from heavier than usual cycle. No indication for further evaluation advanced imaging at this time. Medication for SALES VICE PRESIDENT consultation. Give the patient strict return precautions and follow-up instructions. The patient and/or family, caregivers express understanding. The patient and/or family, caregivers agrees with the plan. Total critical care time today provided was at least 0 minutes. This excludes separately billable procedures. Critical care time (if documented) is secondary to the patient having high probability of clinically significant/life threatening deterioration in the patient's condition which required my urgent intervention. Shared decision making: I will have a discussion with the patient and or visitors regarding risk/benefits of further testing or admission. They will be made aware of of the risk/benefits inherent in this decision they will be given the opportunity to voice understanding. Lab Data Attestation: I reviewed the patient's lab results. Lab results narrative: CBC without leukocytosis, severe anemia, no thrombocytopenia. BMP without evidence of significant electrolyte abnormalities, no anion gap, no acute kidney injury. Urine test is negative Labs: Laboratory Results - last 24 hr 12/08/22 12/08/22 12/08/22 09:25 09:25 09:35 WBC 7.4 RBC 4.15 L Hgb 12.0 Hct 38.1 MCV 91.8 MCH 28.9 MCHC 31.5 L RDW Std Deviation 49.0 H RDW Coeff of Phil 14.6 Plt Count 271 MPV 9.9 Sodium 141 Potassium 4.0 Chloride 110 H Carbon Dioxide 27.0 Anion Gap 4 L BUN 9 Creatinine 0.76 Estim Creat Clear Calc 92.97 Est GFR (MDRD) Af Amer 111 Est GFR (MDRD) Non-Af 92 BUN/Creatinine Ratio 11.9 Glucose 99 Calcium 8.3 L Urine Test Negative Blood Type AB POSITIVE Antibody Screen POSITIVE H Antibody Identification ANTI-E ANTI-LITTLE c Discharge Plan Triage Chief Complaint: Vag Bleeding ED Provider: Ruddy Fink Dx/Rx/DC Orders Clinical Impression: Abnormal vaginal bleeding Instructions: ED Dysfunctional Uterine Bleeding Prescriptions: No Action multivitamin [Multiple Vitamins] 1 EACH tablet 1 ea PO DAILY sennosides-docusate sodium [Stool Softener-Stimulant Laxat] 1 TABLET tablet 1 - 2 tab PO DAILY PRN PRN (Reason: Constipation ) 0RF ibuprofen 600 MG tablet 600 mg PO Q6H PRN PRN (Reason: Mild Pain (-08/04)) 0RF Primary Care Provider: Carmen Cyr FIRE FIGHTERS DISPATCHER Referrals: Brianna Singh MD [Med Staff - Active Staff] - Activity Restrictions/Additional Instructions: Thank you for trusting us with your care today! Please take Tylenol (2 pills, 650 mg), ibuprofen (2 pills, 400 mg) every 6 hours as needed for pain and fever control. Please return to the emergency department if your symptoms change or worsen. Specifically if you go through 1 pad every hour for 3 or more hours. If you lose consciousness develop shortness of breath, chest pain or if your symptoms change or worsen in any way. Please follow with your SALES VICE PRESIDENT for further outpatient evaluation and management. Disposition Disposition: Home, Self Care Discharge Date/Time: 12/08/22 11:16
[2022-12-08] MEDS: 0.9% Normal Saline 1,000 ML 999 ML IV (09:35)
[2022-12-08 09:40] LABS: Hematocrit 38.1 % (37-47); Mean Corp Hgb Conc 31.5 g/dL (32-36); Mean Corpuscular Hgb 28.9 pg (27.0-32.0); Mean Corpuscular Volume 91.8 fL (81-99); Mean Platelet Vol. 9.9 fl (6.2-12.0); Platelet Count 271 K/mm3 (150-450); RBC Distribution Width CV 14.6 % (11.6-14.6); Red Blood Count 4.15 M/mm3 (4.2-5.4); White Blood Count 7.4 K/mm3 (4.4-11.0)
[2022-12-08 09:48] LABS: Anion Gap 4 (5-15); BUN 9 mg/dL (7-18); BUN/Creat Ratio 11.9 RATIO (10-20); Calcium,Total 8.3 mg/dL (8.5-10.1); Chloride 110 mmol/L (98-107); Creatinine, Serum 0.76 mg/dL (0.55-1.02); EST Glomerular Filtration Rate 92 mL/min (>60); Est Glom Filt Rate - Afr Amer 111 mL/min (>60); Estimated Creatinine Clearance 92.97 ml/min; Glucose 99 mg/dL (74-106); Sodium Level 141 mmol/L (136-145)
[2022-12-08 10:17] LABS: Internal QC Validated? YES +Cl - CLEAR BKGD; Pregnancy, Urine Negative Negative
== END 2022-12-08 11:16 | disposition home or self-care (01) ==
PROVIDERS: Emergency Provider Emergency Medicine; PCP Nurse Practitioner Primary Care; Visit Provider Emergency Medicine
DX: N93.9 Abnormal uterine and vaginal bleeding, unspecified (principal); Z87.891 Personal history of nicotine dependence
CPT/HCPCS: 80048; 81025; 85027; 86850; 86870; 86900; 86901; 99283; J7030; A4216